=== PATIENT | female | born 1935 | race Caucasian/White ===

== ENCOUNTER → 2016-04-13 | Outpatient (CLI) | payer BC ==
[~2016-04-13] MED LIST: APR25 PO; ASPCH81X PO; ATV5X PO; CHOL20009 PO; COEN100C6 PO; DLCSR120 PO; LSN40 PO; OMEG10007 PO; RANI150T2 PO; SPIR25TA PO; SYN100 PO; TRAV0.00 OPB
== END | disposition home or self-care (01) ==
LOC: C.PAPS 09:33
PROVIDERS: ATTEND Obstetrics & Gynecology
DX: Z12.4 Encounter for screening for malignant neoplasm of cervix (principal)

== ENCOUNTER → 2016-10-11 | Outpatient (CLI) | payer BC ==
--- NOTE | 2016-10-11 15:52 | MAMMOGRAPHY REPORT ---
BILATERAL DIGITAL SCREENING MAMMOGRAM WITH CAD: 10/11/2016 CLINICAL HISTORY: Routine screening. Patient has no complaints. TECHNIQUE: Bilateral CC and MLO views were obtained. Current study was also evaluated with a Compute r Aided Detection (CAD) system. COMPARISON: Comparison is made to exams dated: 10/09/2015 mammogram, 10/07/2014 mammogram, 12/25/2013 m ammogram, 10/04/2013 mammogram, 09/29/2010 mammogram, and 10/03/2011 mammogram - [facility] enter. BREAST COMPOSITION: The tissue of both breasts is heterogeneously dense, which may obscure small mas ses. FINDINGS: There are diffuse bilateral dahlia-like and secretory calcifications throughout the breasts. No obvious mass, architectural distortion or cluster of new, suspicious microcalcifications is seen. IMPRESSION: ACR BI-RADS CATEGORY 1: NEGATIVE There is no mammographic evidence of malignancy. A 1 year screening mammogram is recommended. The pa tient will receive written notification of the results. Approximately 10% of breast cancers are not detected with mammography. A negative mammographic report should not delay biopsy if a clinically suggestive mass is present. Shoshana You M.D. ay/:10/11/2016 13:30:10 Napper Tender: Alesha LUNA(R)(Tashi), [facility] letter sent: Normal 1/2 BI-RADS Code: ACR BI-RADS Category 1: Negative
== END | disposition home or self-care (01) ==
LOC: C.MAMM 08:55
PROVIDERS: ATTEND Obstetrics & Gynecology
DX: Z12.31 Encounter for screening mammogram for malignant neoplasm of breast (principal)

== ENCOUNTER → 2017-10-11 | Outpatient (CLI) | payer BC ==
[~2017-10-11] MED LIST changes: +LISI40TA3 PO; -LSN40 PO
[2017-10-11 13:08] LABS: BASO % 0.6 %; BASO ABS # 0.06 K/uL (0-0.2); EOS % 2.8 %; EOS ABS # 0.27 K/uL (0-0.5); HEMATOCRIT 44.1 % (37-47); IG# 0.02 K/uL (0.00-0.02); LYMPH % 28.8 %; LYMPH ABS # 2.77 K/uL (1.2-3.4); MEAN CELL VOLUME 91.3 fL (80-100); MEAN CORPUSCULAR HEMOGLOBIN 31.1 pg (25-34); MEAN PLATELET VOLUME 10.6 fL (7.4-10.4); MONO % 11.7 %; MONO ABS # 1.13 K/uL (0.11-0.59); NEUT % 55.9 %; NEUT ABS # 5.37 K/uL (1.4-6.5); PLATELET COUNT 298 K/uL (130-400); RED CELL DISTRIBUTION WIDTH CV 13.9 % (11.5-14.5); RED CELL DISTRIBUTION WIDTH SD 46.2 fL (36.4-46.3); WHITE BLOOD COUNT 9.62 K/uL (4.8-10.8)
[2017-10-11 14:09] LABS: ALKALINE PHOSPHATASE 71 U/L (45-117); ALT/SGPT 23 U/L (12-78); AST/SGOT 21 U/L (15-37); BLOOD UREA NITROGEN 15 mg/dl (7-18); CALCIUM 9.3 mg/dl (8.5-10.1); CARBON DIOXIDE 26 mmol/L (21-32); CHOLESTEROL 154 mg/dl (0-200); CREATININE 1.01 mg/dl (0.60-1.20); GLUCOSE 94 mg/dl (70-99); LDL CHOLESTEROL CALCULATED 75 mg/dl; POTASSIUM 3.7 mmol/L (3.5-5.1); SODIUM 136 mmol/L (136-145); TOTAL PROTEIN 7.3 gm/dl (6.4-8.2)
== END | disposition home or self-care (01) ==
LOC: C.LABMFLN 06:53
PROVIDERS: ATTEND Family Medicine
DX: E03.9 Hypothyroidism, unspecified (principal); E78.00 Pure hypercholesterolemia, unspecified; M79.1 Myalgia; K21.0 Gastro-esophageal reflux disease with esophagitis

== ENCOUNTER 2022-03-25 11:54 | Observation (INO) ==
--- NOTE | 2022-03-25 12:45 | Emergency Department Note ---
Impression & Plan Stroke-like symptoms, Cerebral artery disease, Aneurysm of carotid artery, Bradycardia ED Provider Note NAME: JANET MANRIQUE AGE: 87 SEX: F : 1935 ARRIVES VIA: Walk-In INFORMANT: Patient, Family ED PROVIDER(S): Rudolph Rodriguez DO CHIEF COMPLAINT: Weakness HPI: The patient is an 87-year-old female who presented to the emergency [facility] via triage for an evaluation of weakness. The patient states that she awoke at approximately 3:00 this morning. She notes when she got up she was very off balance and felt as though she was falling backwards. She did states that she had a headache but which is now gone. She denies having any fever or cough. She denies having any vomiting. She called her family doctor to be seen and was referred to the emergency department. She presented with family. She states that she has been compliant with her outpatient medications. She denies having any current headache. She denies any unilateral weakness or difficulty speaking. I was called by the triage nurse to evaluate the patient in the waiting area to determine if she required stroke alert. ROS: See above HPI for pertinent positives & negatives. A total of 10 systems reviewed and were otherwise negative. PAST MEDICAL HISTORY: See Below PAST SURGICAL HISTORY: See Below FAMILY HISTORY: See Below SOCIAL HISTORY: See Below HOME MEDICATIONS: See Below ALLERGIES: See Below VITALS: See Below PHYSICAL EXAMINATION: GENERAL: Patient is awake alert in no acute distress patient is resting comfortably and showing no signs of anxiety EYES: The conjunctivae are clear. The pupils are round and reactive. EARS, NOSE, MOUTH AND THROAT: The nose is without any evidence of any deformity. Mucous membranes are moist. Tongue is midline. NECK: The neck is nontender and supple. RESPIRATORY: Normal respiratory effort is noted there is no evidence of wheezing rhonchi or rales CARDIOVASCULAR: Bradycardic heart sounds were noted to auscultation. There is no definite murmur. GASTROINTESTINAL: The abdomen is soft. Abdomen is nontender. MUSCULOSKELETAL/EXTREMITIES: There is no evidence of gross deformity full range of motion is noted in the hips and shoulders. SKIN: Skin is warm and dry. Trace pedal edema was noted bilaterally. NEUROLOGIC: Patient is awake alert and oriented x 3. 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 There is no drift in the upper extremities. There is no facial droop. Patient is able to hold each leg out for greater than 5 seconds. The patient did require some help with ambulation. MEDICAL DECISION MAKING: The patient is an 87-year-old female who presented to the emergency department for weakness. The patient states her symptoms began last evening. She did have a slight headache as well as what sounded like some ataxia. The patient did not have any facial droop. Strength appeared to be symmetric. When she tried to ambulate she did appear to have significant difficulty. She denies having any headache at this time. I discussed the patient's laboratory and radiographic studies with her. 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 I feel this more likely explains the patient's findings today. The patient did have elevation of blood pressure but given this is age-indeterminate I do not feel this would require intervention at this time. I did independently review the patient's radiographic studies. I will discuss his case with the on-call [facility]ist. The patient may require further inpatient work-up. Triage Nursing notes reviewed. Prior medical records reviewed Vital Signs: reviewed and remarkable for bradycardia. Differential diagnosis: Infection, dehydration, metabolic abnormality, hypo/hyperglycemia, electrolyte disturbance, anemia, hypoxia, cardiac sources, intracerebral event, toxicologic, neurologic, as well as other pathologies. ER treatment provided: See below Diagnostics interpreted by me: ECG: EKG was obtained in the emergency department. My interpretation is sinus bradycardia at 48 bpm. PVCs were noted. LVH was noted by voltage criteria. Nonspecific T wave abnormality noted in the lateral leads. This was compared to a tracing from November 28, 2014. The T wave abnormalities are new compared with this tracing. Cardiac Monitoring: An order was placed for continuous cardiac monitoring. The monitor shows a rate of 47 bpm with sinus bradycardia. Laboratory studies: As stated above and show below. Imaging studies: See below Radiographic imaging was reviewed by myself Consultation(s): Dr Garcia was notified about the patient. He will evaluate the patient in the emergency department for further management. I discussed this case with Dr. Velarde who is on-call for the [facility]ist group. Past Med/Surg History Medical History Abdominal pain, epigastric Abnormal mammography Atypical nevi Carpal tunnel syndrome Chronic reflux esophagitis Elevated blood sugar Elevated CK-MB level Encounter for routine gynecological examination Headache Hip pain Hypercholesterolemia Hypertension Hypertension, poor control Hypertensive emergency without congestive heart failure (12/11/13) Hypomagnesemia Hypothyroidism Impacted cerumen of right ear Influenza vaccine administered Lichen simplex chronicus Medicare annual wellness visit, subsequent Myalgia Nipple discharge PVCs (premature ventricular contractions) Recurrent UTI SNHL (sensorineural hearing loss) Subjective tinnitus Visit for screening mammogram Vulvovaginitis Surgical History History of appendectomy History of breast biopsy right History of cataract surgery bilateral History of colonoscopy History of dilation and curettage History of lumpectomy History of oophorectomy Family History Mother Stroke Coronary heart disease Congestive heart failure (CHF) Father Coronary heart disease Myocardial infarction Denies family history of Ovarian cancer Prostate cancer Breast cancer Colorectal cancer Social History Smoking Status: Never smoker Second Hand Exposure: Yes (Father smoked ); Hx Alcohol Use: Yes Alcohol type: beer and wine Alcohol Intake Frequency: 2-4 x/Month Hx Substance Use: No Preferred Language: Lithuanian Communication Ability: Effective Visual Impairment: Limited Hearing Ability: Hard of Hearing 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 Required: No Beliefs That Will Affect Care: None marital status: Current Living Situation: Spouse Current Living Situation Comment: [place] current occupational status: retired How many Children do You have: 1 Feels Safe at Home: Yes Childhood Exposure to Second-Hand Smoke: Yes (father smoked) Diet Comment: low sugar caffeine: No during the past year weight has: remained stable Dental Care, Regularly: Yes Physical Activity Frequency: 1-2 Times per Week Seatbelt Use: always Sunscreen Use: No Do you think of yourself as: straight/heterosexual Assistive Devices: Glasses Allergies Allergies Allergy/AdvReac Type Severity Reaction Status Date / Time ciprofloxacin Allergy Intermediate EDEMA Verified 03/25/22 16:57 diltiazem Allergy Intermediate EDEMA Verified 03/25/22 16:57 gabapentin Allergy Intermediate SWELLING Verified 03/25/22 16:57 Penicillins Allergy Intermediate HIVES Verified 03/25/22 16:57 tramadol Allergy Mild Unknown Verified 03/25/22 16:57 amlodipine Allergy Unknown Unknown Verified 03/25/22 16:57 Sulfa (Sulfonamide Allergy Unknown Unknown Verified 03/25/22 16:57 Antibiotics) Home Meds Home Medications Medication Instructions Recorded Confirmed ascorbate calcium (vitamin C) 500 500 mg PO DAILY 12/28/21 03/25/22 mg tablet omega-3 fatty acids 1,000 mg 1,000 mg PO DAILY 03/25/22 03/25/22 capsule Previous Rx's Medication Instructions Recorded cholecalciferol (vitamin D3) 50 2,000 units PO DAILY #30 caps 08/21/18 mcg (2,000 unit) capsule pravastatin 20 mg tablet 20 mg PO DAILY #90 tabs 09/02/21 cane #1 ea 10/29/21 sertraline 25 mg tablet (Zoloft) 25 mg PO DAILY #30 tabs 11/01/21 diltiazem HCl 240 mg 240 mg PO DAILY #90 caps 01/12/22 capsule,extended release 24 hr aspirin 81 mg tablet,delayed 81 mg PO DAILY #30 tabs 02/07/22 release (Adult Low Dose Aspirin) carvedilol 12.5 mg tablet 12.5 mg PO BID #180 tabs 02/07/22 hydrochlorothiazide 25 mg tablet 25 mg PO DAILY #90 tabs 02/07/22 levothyroxine 88 mcg tablet 88 mcg PO DAILY #90 tabs 02/07/22 (Levoxyl) lisinopril 40 mg tablet 40 mg PO DAILY #90 tabs 02/07/22 magnesium oxide 500 mg PO DAILY #180 tabs 02/07/22 Results & Data (ED) Vital Signs Vital Signs - 24 hr 03/25/22 12:19 03/25/22 15:56 03/25/22 15:56 Temperature 36.5 C Temperature Source Temporal Artery Scan Pulse Rate 46 L Pulse Rate [Right Finger] 53 L Pulse Rhythm Regular Pulse Rhythm [Right Finger] Regular Pulse Strength Normal Pulse Strength [Right Finger] Normal Respiratory Rate 20 18 Respiratory Effort / Characteristics Non-Labored Spontaneous Non-Labored Respiratory Depth Normal Normal Respiratory Pattern Regular Regular Blood Pressure 126/63 Blood Pressure [Right Arm] 140/67 Blood Pressure Mean 84 Blood Pressure Mean [Right Arm] 91 Blood Pressure Position Sitting Blood Pressure Position [Right Arm] Lying Pulse Oximetry 93 94 Oxygen Delivery Method Room Air Room Air Room Air Sepsis Recent Fever Within 48 Hours No Sepsis New/Unexplained Change in Mental Status N/A Sepsis Action Taken by Nursing No Action Required 03/25/22 15:56 03/25/22 17:00 Temperature Temperature Source Pulse Rate Pulse Rate [Right Finger] 46 L Pulse Rhythm Pulse Rhythm [Right Finger] Regular Pulse Strength Pulse Strength [Right Finger] Normal Respiratory Rate 18 Respiratory Effort / Characteristics Non-Labored Respiratory Depth Normal Respiratory Pattern Regular Blood Pressure Blood Pressure [Right Arm] 143/66 H Blood Pressure Mean Blood Pressure Mean [Right Arm] 91 Blood Pressure Position Blood Pressure Position [Right Arm] Lying Pulse Oximetry 91 Oxygen Delivery Method Room Air Room Air Sepsis Recent Fever Within 48 Hours Sepsis New/Unexplained Change in Mental Status Sepsis Action Taken by Half-Way Medications Current Medication List: was personally reviewed by me Laboratory Data Attestation: I reviewed the patient's lab results. 03/25/22 12:43 03/25/22 12:43 Lab Results 03/25/22 03/25/22 03/25/22 Range/Units 12:43 12:43 12:43 WBC 10.88 H (4.8-10.8) K/ul RBC 5.04 (3.93-5.22) M/uL Hgb 15.6 (12.0-16.0) g/dl POC Hgb (12.0-16.0) g/dl Hct 45.5 H (34.1-44.9) % POC Hct (37-47) % MCV 90.3 (80.0-100.0) fL MCH 31.0 (25.0-34.0) pg MCHC 34.3 (32.0-36.0) g/dL RDW Std Deviation 43.2 (36.4-46.3) fL RDW Coeff of Agatha 13.2 (11.5-14.5) % Plt Count 287 (130-400) K/uL MPV 10.0 (9.4-12.3) fL PT 11.4 (9.0-12.0) Seconds INR 1.1 (0.9-1.1) APTT 25.6 (21.0-31.0) Seconds PTT Ratio 0.9 POC Sodium (135-144) mmol/L Sodium 135 L (136-145) mmol/L POC Potassium (3.3-5.0) mmol/L Potassium TNP POC Chloride (101-112) mmol/L Chloride 100 (98-107) mmol/L Carbon Dioxide 28 (21-32) mmol/L POC Total CO2 (24-31) mmol/L Anion Gap 7 (3-11) POC Anion Gap (16-25) mmol/L POC BUN (7-18) mg/dl BUN 23 (6-23) mg/dl Creatinine 1.22 H (0.6-1.2) mg/dl POC Creatinine (0.6-1.3) mg/dl Est Cr Clr Drug Dosing Not Reportable Est GFR ( Amer) 46.5 ml/min Est GFR (Non-Af Amer) 40.1 ml/min BUN/Creatinine Ratio 18.9 (10-20) Glucose 156 H (70-99(Fasting)) mg/dl POC Glucose (other) (70-99) mg/dl Calcium 9.6 (8.5-10.1) mg/dl POC Ioniz Calcium Oliver (1.12-1.32) mmol/l Magnesium 1.8 (1.7-2.4) mg/dl Total Bilirubin 0.8 (0.2-1.0) mg/dl AST TNP ALT 20 (7-52) U/L Alkaline Phosphatase 69 (34-104) U/L Troponin I High Sens (0-14) pg/ml Total Protein 7.6 (6.0-8.3) gm/dl Albumin 4.1 (3.4-5.0) gm/dl Globulin 3.5 (2.5-4.0) gm/dl Albumin/Globulin Ratio 1.2 (0.9-2) SARS-CoV-2, RNA, NAAT (NEGATIVE) 03/25/22 03/25/22 03/25/22 Range/Units 12:50 12:57 16:03 WBC (4.8-10.8) K/ul RBC (3.93-5.22) M/uL Hgb (12.0-16.0) g/dl POC Hgb 16.3 H (12.0-16.0) g/dl Hct (34.1-44.9) % POC Hct 48 H (37-47) % MCV (80.0-100.0) fL MCH (25.0-34.0) pg MCHC (32.0-36.0) g/dL RDW Std Deviation (36.4-46.3) fL RDW Coeff of Agatha (11.5-14.5) % Plt Count (130-400) K/uL MPV (9.4-12.3) fL PT (9.0-12.0) Seconds INR (0.9-1.1) APTT (21.0-31.0) Seconds PTT Ratio POC Sodium 139 (135-144) mmol/L Sodium (136-145) mmol/L POC Potassium 3.7 (3.3-5.0) mmol/L Potassium 4.2 POC Chloride 100 L (101-112) mmol/L Chloride (98-107) mmol/L Carbon Dioxide (21-32) mmol/L POC Total CO2 26 (24-31) mmol/L Anion Gap (3-11) POC Anion Gap 17.0 (16-25) mmol/L POC BUN 23 H (7-18) mg/dl BUN (6-23) mg/dl Creatinine (0.6-1.2) mg/dl POC Creatinine 1.3 (0.6-1.3) mg/dl Est Cr Clr Drug Dosing Est GFR ( Amer) ml/min Est GFR (Non-Af Amer) ml/min BUN/Creatinine Ratio (10-20) Glucose (70-99(Fasting)) mg/dl POC Glucose (other) 156 H (70-99) mg/dl Calcium (8.5-10.1) mg/dl POC Ioniz Calcium Oliver 1.24 (1.12-1.32) mmol/l Magnesium (1.7-2.4) mg/dl Total Bilirubin (0.2-1.0) mg/dl AST 24 ALT (7-52) U/L Alkaline Phosphatase (34-104) U/L Troponin I High Sens 8.7 (0-14) pg/ml Total Protein (6.0-8.3) gm/dl Albumin (3.4-5.0) gm/dl Globulin (2.5-4.0) gm/dl Albumin/Globulin Ratio (0.9-2) SARS-CoV-2, RNA, NAAT NEGATIVE (NEGATIVE) Administered Medications Discontinued Medications Ioversol (Optiray 320 500ml) 120 ml IV ONCE ONE Stop: 03/25/22 14:09 Last Admin: 03/25/22 14:09 Dose: 120 ml Documented By: LORENZO Ondansetron HCl (Ondansetron Inj 2 Mg/Ml 2 Ml Vial) 4 mg IV NOW STA Stop: 03/25/22 16:08 Last Admin: 03/25/22 16:29 Dose: 4 mg Documented By: AP Imaging Data Radiologist's Impression: Head CT 03/25/22 12:29 CT OF THE HEAD WITHOUT CONTRAST CLINICAL HISTORY: Stroke Alert. COMPARISON STUDY: MRI of the brain September 17, [address] October 27, 2021. TECHNIQUE: Helical axial images of the head were obtained without IV contrast. Automated exposure control was utilized for the study. A dose lowering technique was utilized adhering to the principles of ALARA. FINDINGS: This study is mildly compromised by motion artifact. White matter hypodensity suggests small vessel disease. No acute intracranial hemorrhage, midline shift or mass effect is present. The ventricular system is unremarkable. The basal cisterns are patent. No extra-axial collections are present. There are no findings to suggest acute dural sinus thrombosis or acute territorial infarct. No significant calvarial abnormalities are present. Visualized portions of the sinuses and mastoid air cells are clear. IMPRESSION: No acute intracranial findings. Exam mildly compromised by artifact. ACT 112: Negative or not required by law. Electronically signed by: Jurgen Ray M.D. 03/25/2022 2:40 PM Head CTA 03/25/22 12:37 CT angio head w con CLINICAL HISTORY: 87 years-old Female with cva. Acute headache with strokelike symptoms COMPARISON STUDY: Head CT of same day TECHNIQUE: Following the IV administration of 120 cc of Optiray, CT angiogram of the brain was performed from the skull base to the vertex. Images are reviewed in the axial, sagittal, and coronal planes. 3-D MIPS images are created and assessed. IV contrast was administered without complication. All measurements were obtained according to NASCET criteria. A dose lowering technique was utilized adhering to the principles of ALARA. FINDINGS: CT ANGIOGRAM OF THE BRAIN: The imaged bilateral internal carotid arteries are patent. 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 This aneurysm is adjacent to a 7 x 5 x 4 mm aneurysm arising from the clinoid segment on image 103. No evidence of aneurysm rupture. The bilateral internal carotid arteries are patent. The bilateral anterior and middle cerebral arteries are also patent. There is a short segment high-grade stenosis present within the P2 segment of the left posterior cerebral artery on image 96 series 7. The basilar and posterior cerebral arteries are patent. The cerebral venous sinuses appear patent. There is no abnormal intracranial enhancement identified. Age-related involutional changes with chronic microvascular ischemic disease. IMPRESSION: 1. 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 No evidence of aneurysm rupture. 2. Focal short segment area of high-grade stenosis within the left posterior cerebral artery. ACT 112: Negative or not required by law. The above report was generated using voice recognition software. It may contain grammatical, syntax or spelling errors. Electronically signed by: Magdiel Birmingham M.D. 03/25/2022 2:45 PM Neck CTA 03/25/22 12:37 NECK CTA HISTORY: Headaches. Ataxia. Confusion. Possible stroke. TECHNIQUE: Multiaxial CT images of the neck were performed following the intravenous administration of contrast to evaluate the major cervical vessels. Maximum intensity projection images were also obtained. All measurements were calculated based on NASCET criteria. A dose lowering technique was utilized adhering to the principles of ALARA. COMPARISON STUDY: None. FINDINGS: The aortic arch and proximal great vessels are widely patent. There is no significant stenosis, occlusion, or dissection identified within the bilateral common carotid, internal carotid, or vertebral arteries. Mild to moderate calcified plaque within the bilateral carotid bifurcations. IMPRESSION: No significant stenosis, occlusion, or dissection identified within the carotid or vertebral arteries. ACT 112: Negative or not required by law. Electronically signed by: Mayur Villatoro M.D. 03/25/2022 2:30 PM Chest X-Ray 03/25/22 16:05 SINGLE VIEW CHEST CLINICAL HISTORY: Generalized weakness FINDINGS: 2 AP, portable, upright chest radiographs are compared to study dated 02/06/2019. The heart is enlarged. Atherosclerotic calcification of the thoracic aorta. The pulmonary vasculature is noncongested. Chronic interstitial thickening similar to previous. The lungs and pleural spaces are otherwise clear noting bibasilar scarring/atelectasis. No pneumothorax is seen. The skeletal structures are osteopenic. The bony thorax is grossly intact. IMPRESSION: Cardiomegaly with no active disease in the chest. ACT 112: Negative or not required by law. Electronically signed by: Manjit Bourgeois M.D. 03/25/2022 4:44 PM Discharge Plan Visit Data Chief Complaint: Dizziness Stated Complaint: DIZZINESS,NAUSEA, ED Provider: Rudolph Rodriguez Discharge Problem: Stroke-like symptoms, Cerebral artery disease, Aneurysm of carotid artery, Bradycardia Patient Disposition: Being Evaluated by Hospitalist Forms Stand Alone Forms: My [facility] Prescriptions Prescriptions: No Action sertraline [Zoloft] 25 mg tablet 25 mg PO DAILY Qty: 30 2RF diltiazem HCl 240 mg capsule,extended release 24hr 240 mg PO DAILY Qty: 90 3RF ascorbate calcium (vitamin C) 500 mg tablet 500 mg PO DAILY levothyroxine [Levoxyl] 88 mcg tablet 88 mcg PO DAILY Qty: 90 3RF carvedilol 12.5 mg tablet 12.5 mg PO BID Qty: 180 3RF Rx Instructions: must administer with a meal/food lisinopril 40 mg tablet 40 mg PO DAILY Qty: 90 3RF magnesium oxide 250 mg magnesium tablet 500 mg PO DAILY Qty: 180 0RF hydrochlorothiazide 25 mg tablet 25 mg PO DAILY Qty: 90 3RF aspirin [Adult Low Dose Aspirin] 81 mg tablet,delayed release (DR/EC) 81 mg PO DAILY Qty: 30 2RF (DME) cane Device See Rx Instructions .Route Qty: 1 0RF Rx Instructions: As directed cholecalciferol (vitamin D3) 2,000 unit capsule 2,000 units PO DAILY Qty: 30 0RF pravastatin 20 mg tablet 20 mg PO DAILY Qty: 90 3RF omega-3 fatty acids 1,000 mg Capsule 1,000 mg PO DAILY Referrals Referrals: Sourav Mac DO [Primary Care Provider] -
[2022-03-25 13:05] LABS: Hematocrit (blood only) 45.5 % (34.1-44.9); Hemoglobin 15.6 g/dl (12.0-16.0); Mean Corpuscular Hgb Conc 34.3 g/dL (32.0-36.0); Mean Corpuscular Volume 90.3 fL (80.0-100.0); Platelet Count 287 K/uL (130-400); RDW Coefficient of Variation 13.2 % (11.5-14.5); RDW Standard Deviation 43.2 fL (36.4-46.3); Red Blood Count 5.04 M/uL (3.93-5.22); White Blood Count 10.88 K/ul (4.8-10.8)
[2022-03-25 13:11] LABS: iSTAT Creatinine 1.3 mg/dl (0.6-1.3); iSTAT Hemoglobin 16.3 g/dl (12.0-16.0); iSTAT Ionized Calcium 1.24 mmol/l (1.12-1.32); iSTAT Potassium 3.7 mmol/L (3.3-5.0)
[2022-03-25 13:26] LABS: INR 1.1 (0.9-1.1); Partial Thromboplastin Ratio 0.9; Partial Thromboplastin Time 25.6 Seconds (21.0-31.0); Prothrombin Time 11.4 Seconds (9.0-12.0)
[2022-03-25 13:33] LABS: Alanine Aminotransferase 20 U/L (7-52); Albumin Globulin Ratio 1.2 (0.9-2); Albumin Level 4.1 gm/dl (3.4-5.0); Alkaline Phosphatase 69 U/L (34-104); Anion Gap 7 (3-11); BUN Creatinine Ratio 18.9 (10-20); Bilirubin,Total 0.8 mg/dl (0.2-1.0); Blood Urea Nitrogen 23 mg/dl (6-23); Calcium 9.6 mg/dl (8.5-10.1); Carbon Dioxide 28 mmol/L (21-32); Chloride 100 mmol/L (98-107); Est GFR (African American) 46.5 ml/min; Est GFR (Non-African American) 40.1 ml/min; Globulin 3.5 gm/dl (2.5-4.0); Glucose 156 mg/dl (70-99(Fasting)); Magnesium 1.8 mg/dl (1.7-2.4); Sodium 135 mmol/L (136-145); Total Protein 7.6 gm/dl (6.0-8.3)
[2022-03-25] MEDS ORDERED: OPTIRAY 320 500ml IV ONE (14:08)
--- NOTE | 2022-03-25 14:31 | CT Scan Report ---
NECK CTA HISTORY: Headaches. Ataxia. Confusion. Possible stroke. TECHNIQUE: Multiaxial CT images of the neck were performed following the intravenous administration o f contrast to evaluate the major cervical vessels. Maximum intensity projection images were also obta ined. All measurements were calculated based on NASCET criteria. A dose lowering technique was utili zed adhering to the principles of ALARA. COMPARISON STUDY: None. FINDINGS: The aortic arch and proximal great vessels are widely patent. There is no significant sten osis, occlusion, or dissection identified within the bilateral common carotid, internal carotid, or v ertebral arteries. Mild to moderate calcified plaque within the bilateral carotid bifurcations. IMPRESSION: No significant stenosis, occlusion, or dissection identified within the carotid or vertebral arteries . ACT 112: Negative or not required by law. Electronically signed by: Mayur Villatoro M.D. 03/25/2022 2:30 PM
--- NOTE | 2022-03-25 14:41 | CT Scan Report ---
CT OF THE HEAD WITHOUT CONTRAST CLINICAL HISTORY: Stroke Alert. COMPARISON STUDY: MRI of the brain September 17, [address] October 27, 2021. TECHNIQUE: Helical axial images of the head were obtained without IV contrast. Automated exposure con trol was utilized for the study. A dose lowering technique was utilized adhering to the principles o f ALARA. FINDINGS: This study is mildly compromised by motion artifact. White matter hypodensity suggests smal l vessel disease. No acute intracranial hemorrhage, midline shift or mass effect is present. The vent ricular system is unremarkable. The basal cisterns are patent. No extra-axial collections are present . There are no findings to suggest acute dural sinus thrombosis or acute territorial infarct. No sign ificant calvarial abnormalities are present. Visualized portions of the sinuses and mastoid air cells are clear. IMPRESSION: No acute intracranial findings. Exam mildly compromised by artifact. ACT 112: Negative or not required by law. Electronically signed by: Jurgen Ray M.D. 03/25/2022 2:40 PM
--- NOTE | 2022-03-25 14:47 | CT Scan Report ---
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 Acute headache with strokelike symptoms COMPARISON STUDY: Head CT of same day TECHNIQUE: Following the IV administration of 120 cc of Optiray, CT angiogram of the brain was perfor med from the skull base to the vertex. Images are reviewed in the axial, sagittal, and coronal planes . 3-D MIPS images are created and assessed. IV contrast was administered without complication. All me asurements were obtained according to NASCET criteria. A dose lowering technique was utilized adherin g to the principles of ALARA. FINDINGS: CT ANGIOGRAM OF THE BRAIN: The imaged bilateral internal carotid arteries are patent. 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 This aneurysm is adjacent to a 7 x 5 x 4 mm aneurysm arising from the clinoid segment on image 103. No evidence of aneurysm rupture. Th e bilateral internal carotid arteries are patent. The bilateral anterior and middle cerebral arteries are also patent. There is a short segment high-grade stenosis present within the P2 segment of the l eft posterior cerebral artery on image 96 series 7. The basilar and posterior cerebral arteries are p atent. The cerebral venous sinuses appear patent. There is no abnormal intracranial enhancement ident ified. Age-related involutional changes with chronic microvascular ischemic disease. IMPRESSION: 1. There are two areas of saccular aneurysmal dilation involving the distal right internal carotid ar louise measuring up to 9 mm. No evidence of aneurysm rupture. 2. Focal short segment area of high-grade stenosis within the left posterior cerebral artery. ACT 112: Negative or not required by law. The above report was generated using voice recognition software. It may contain grammatical, syntax o r spelling errors. Electronically signed by: Magdiel Birmingham M.D. 03/25/2022 2:45 PM
[2022-03-25] MEDS ORDERED: ONDANSETRON INJ 2 MG/ML 2 ML VIAL IV STA (16:07)
--- NOTE | 2022-03-25 16:11 | Electrocardiogram Report ---
Test Reason : Blood Pressure : / mmHG Vent. Rate : 048 BPM Atrial Rate : 048 BPM P-R Int : 170 ms QRS Dur : 082 ms QT Int : 504 ms P-R-T Axes : -22 -12 091 degrees QTc Int : 450 ms Poor data quality, interpretation may be adversely affected Sinus bradycardia with occasional Premature ventricular complexes Left ventricular hypertrophy with repolarization abnormality Abnormal ECG When compared with ECG of 28-NOV-2014 22:41, Vent. rate has decreased BY 45 BPM T wave inversion now evident in Lateral leads Confirmed by Rudolph Bowman ([id number]) on 03/25/2022 4:11:04 PM Referred By: Confirmed By:Rudolph Bowman
[2022-03-25 16:40] LABS: Potassium 4.2 mmol/L (3.5-5.1)
--- NOTE | 2022-03-25 16:45 | XRay Report ---
SINGLE VIEW CHEST CLINICAL HISTORY: Generalized weakness FINDINGS: 2 AP, portable, upright chest radiographs are compared to study dated 02/06/2019. The heart is enlarged. Atherosclerotic calcification of the thoracic aorta. The pulmonary vasculature is nonco ngested. Chronic interstitial thickening similar to previous. The lungs and pleural spaces are otherw ise clear noting bibasilar scarring/atelectasis. No pneumothorax is seen. The skeletal structures are osteopenic. The bony thorax is grossly intact. IMPRESSION: Cardiomegaly with no active disease in the chest. ACT 112: Negative or not required by law. Electronically signed by: Manjit Bourgeois M.D. 03/25/2022 4:44 PM
[2022-03-25 17:11] LABS: Troponin I High Sensitivity 8.7 pg/ml (0-14)
--- NOTE | 2022-03-25 18:28 | History & Physical Report ---
Date of Service March 25, 2022 Assessment & Plan (1) Dizziness: Plan: Seems to be both a dizziness and a lightheadednesswith what I can see so farposterior circulation stenosis and symptomatic bradycardia are likely both playing off of each other -Posterior circulation stenosis: Follow blood pressure, check lipids, check A1c, MRI brain -Bradycardia: Serial EKGs/cardiac monitoring, hold Coreg and diltiazem and followappears to be sinus bradycardia for now -Given hypothyroidism and forgetting Synthroid (dose unknown) this may play a role as well (2) Bradycardia: Plan: See above (3) Memory loss: Plan: Sounds to be a 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 PT/OT eval and treatdisposition will be a bit of a "work in progress" depending on her symptoms and functional status History of Present Illness Chief Complaint: Unsteadiness Primary Care Provider: Sourav Mac DO Patient is a very pleasant 87-year-old female accompanied by her family. History is a little bit limited by degree of forgetfulness and difficulty hearin g, but putting it together between discussion with the ER doc, the patient, and her familyshe apparently was fairly dizzy when she tried to get up earlier todayfeeling like she was going to fall backwards. On directed questioning she notes there was both an unsteadiness and a lightheadedness (like a head escobar) and the seem to be concomitant but separate sensations. She has no focal numbness or weakness. No other acute symptoms. She does note a degree of forgetfulnesson discussion with her and son, it sounds like the forgetfulness has been slowly progressive over the last 6-12 months. Review of systems otherwise negative except for as above. Son notes that over the last months he has noticed his mom have a bit of a declinehis dad had a knee replacement about a month ago, and with his dad not being able to do as much care of his mom as before, as well as the fact that their routines have been offhe noticed a significant change in mom. Notes she is frequently forgetting medications as well. Allergies Allergy/AdvReac Type Severity Reaction Status Date / Time ciprofloxacin Allergy Intermediate EDEMA Verified 03/25/22 16:57 diltiazem Allergy Intermediate EDEMA Verified 03/25/22 16:57 gabapentin Allergy Intermediate SWELLING Verified 03/25/22 16:57 Penicillins Allergy Intermediate HIVES Verified 03/25/22 16:57 tramadol Allergy Mild Unknown Verified 03/25/22 16:57 amlodipine Allergy Unknown Unknown Verified 03/25/22 16:57 Sulfa (Sulfonamide Allergy Unknown Unknown Verified 03/25/22 16:57 Antibiotics) Home Medications Medication Instructions Recorded Confirmed Type cholecalciferol (vitamin D3) 50 2,000 units PO DAILY #30 caps 08/21/18 03/25/22 Rx mcg (2,000 unit) capsule pravastatin 20 mg tablet 20 mg PO DAILY #90 tabs 09/02/21 03/25/22 Rx cane #1 ea 10/29/21 12/15/21 Rx sertraline 25 mg tablet (Zoloft) 25 mg PO DAILY #30 tabs 11/01/21 03/25/22 Rx ascorbate calcium (vitamin C) 500 500 mg PO DAILY 12/28/21 03/25/22 History mg tablet diltiazem HCl 240 mg 240 mg PO DAILY #90 caps 01/12/22 03/25/22 Rx capsule,extended release 24 hr aspirin 81 mg tablet,delayed 81 mg PO DAILY #30 tabs 02/07/22 03/25/22 Rx release (Adult Low Dose Aspirin) carvedilol 12.5 mg tablet 12.5 mg PO BID #180 tabs 02/07/22 03/25/22 Rx hydrochlorothiazide 25 mg tablet 25 mg PO DAILY #90 tabs 02/07/22 03/25/22 Rx levothyroxine 88 mcg tablet 88 mcg PO DAILY #90 tabs 02/07/22 03/25/22 Rx (Levoxyl) lisinopril 40 mg tablet 40 mg PO DAILY #90 tabs 02/07/22 03/25/22 Rx magnesium oxide 500 mg PO DAILY #180 tabs 02/07/22 03/25/22 Rx omega-3 fatty acids 1,000 mg 1,000 mg PO DAILY 03/25/22 03/25/22 History capsule Past Med/Surg History Medical History Abdominal pain, epigastric Abnormal mammography Atypical nevi Carpal tunnel syndrome Chronic reflux esophagitis Elevated blood sugar Elevated CK-MB level Encounter for routine gynecological examination Headache Hip pain Hypercholesterolemia Hypertension Hypertension, poor control Hypertensive emergency without congestive heart failure (12/11/13) Hypomagnesemia Hypothyroidism Impacted cerumen of right ear Influenza vaccine administered Lichen simplex chronicus Medicare annual wellness visit, subsequent Myalgia Nipple discharge PVCs (premature ventricular contractions) Recurrent UTI SNHL (sensorineural hearing loss) Subjective tinnitus Visit for screening mammogram Vulvovaginitis Surgical History History of appendectomy History of breast biopsy right History of cataract surgery bilateral History of colonoscopy History of dilation and curettage History of lumpectomy History of oophorectomy Family History Mother Stroke Coronary heart disease Congestive heart failure (CHF) Father Coronary heart disease Myocardial infarction Denies family history of Ovarian cancer Prostate cancer Breast cancer Colorectal cancer Social History Smoking Status: Never smoker Second Hand Exposure: Yes (Father smoked ); Hx Alcohol Use: Yes Alcohol type: beer and wine Alcohol Intake Frequency: 2-4 x/Month Hx Substance Use: No Preferred Language: Nauruan Communication Ability: Effective Visual Impairment: Limited Hearing Ability: Hard of Hearing Wrapper Stripper Required: No Beliefs That Will Affect Care: None marital status: Current Living Situation: Spouse Current Living Situation Comment: Terence Chnadra current occupational status: retired How many Children do You have: 1 Feels Safe at Home: Yes Childhood Exposure to Second-Hand Smoke: Yes (father smoked) Diet Comment: low sugar caffeine: No during the past year weight has: remained stable Dental Care, Regularly: Yes Physical Activity Frequency: 1-2 Times per Week Seatbelt Use: always Sunscreen Use: No Do you think of yourself as: straight/heterosexual Assistive Devices: Glasses Review of Systems Review of Systems: All systems reviewed & are unremarkable except as noted in HPI & below Physical Exam Physical Exam: In general she is awake alert oriented but somewhat forgetful no distress. HEENT normocephalic atraumatic mucous membranes moist. Cardio is fairly bradycardic and distant, no rubs murmurs or gallops are noted. Lungs are clear to auscultation bilaterally no rales rhonchi or wheezessomewhat difficult exam due to weakness and positioning. Abdomen is soft nondistended nontender no masses organomegaly. Extremities no cyanosis clubbing, about 2+ bilateral edema. Neuro shows cranial nerves II through XII be grossly intact gross motor is 5 out of 5 globally (of note she was weak on her left leg on first attempt, but second attempt was 5 out of 5 and equal to her right on all subsequent attempts.) Sensory is intact and equal bilaterally to confrontational light touch. Musculoskeletal shows no gross lesions. Mental status shows her to have fair to poor recent recall, normal mood and affect. Results & Data Results & Data ([facility]) Vital Signs (Past 12 Hours) Vital Signs Temp Pulse Pulse Resp BP BP Pulse Ox 03/25/22 17:00 46 L 18 143/66 H 91 03/25/22 15:56 03/25/22 15:56 53 L 18 140/67 94 03/25/22 15:56 03/25/22 12:19 97.7 F 46 L 20 126/63 93 O2 Del Method 03/25/22 17:00 Room Air 03/25/22 15:56 Room Air 03/25/22 15:56 Room Air 03/25/22 15:56 Room Air 03/25/22 12:19 Room Air Code Status & VTE Plan VTE Prophylaxis Plan VTE Prophylaxis will be ordered: Yes PG Care Time/CCT Total # of Minutes Spent Total Time Spent with Patient: Total time spent is greater than 50% in coordination of care (as documented) at patient's floor/unit and/or counseling patient: Coding Level of Care Code 44156 INT INP/OBS CARE 3/75MIN Diagnoses Dizziness R42 Bradycardia R00.1 Memory loss R41.3 Hypercholesterolemia E78.00 Hypertension I10 DVT prophylaxis Z29.9 Discharge planning issues Z02.9
[2022-03-25] MEDS ORDERED: POLYETHYLENE (MIRALAX) 17 GM PACK PO PRN (21:52)
[2022-03-25] MEDS ORDERED: MAGNESIUM HYDROXIDE SUSP 30 ML UDC PO PRN (21:52)
[2022-03-25] MEDS ORDERED: ONDANSETRON INJ 2 MG/ML 2 ML VIAL IV PRN (21:52)
[2022-03-25] MEDS ORDERED: PHARMACIST DISCHARGE MED REC CONSULT PRN (21:52)
[2022-03-25] MEDS ORDERED: ACETAMINOPHEN 325 MG TAB PO PRN (21:52)
[2022-03-25] MEDS ORDERED: ALUMINUM/MAGNESIUM SUSP 30 ML UDC PO PRN (21:52)
[2022-03-26] MEDS ORDERED: PNEUMOCOCCAL POLYSACCHARIDES 25 MCG/0.5 ML VIAL/SYR IM ONE (00:15)
[2022-03-26] MEDS ORDERED: INFLUENZA VACCINE HIGH DOSE PF 65+ 0.7 ML SYR IM ONE (00:15)
[2022-03-26 05:00] LABS: Appearance Urine Clear (Clear); Bacteria Urine Automated Negative (Negative); Bilirubin Urine Negative (Negative); Blood Urine Negative (Negative); Color Urine Yellow; Glucose Urine UA Negative (Negative); Ketones Urine Negative (Negative); Leukocyte Esterase Urine Trace (Negative); Nitrite Urine Negative (Negative); Protein Urine Negative (Negative); RBC Urine Automated 0-4 /hpf (0-4); Specific Gravity Urine 1.026 (1.000-1.030); Urobilinogen Urine Negative (Negative); pH Urine 5.5 (4.5-7.5)
[2022-03-26] MEDS: LEVOTHYROXINE SODIUM 88 MCG TABLET PO SCH (05:36)
--- NOTE | 2022-03-26 07:31 | Hospitalist Progress Note ---
Date of Service March 26, 2022 Assessment & Plan (1) Dizziness: (2) Bradycardia: (3) Memory loss: (4) Hypercholesterolemia: (5) Hypertension: (6) DVT prophylaxis: (7) Discharge planning issues: Plan Nini is a n 87 yo F w/ hx of situational depression, edema, PVCs, reflux esophagitis, hypercholesterolemia, hypothyroidism, SNHL, tinnitus, recurrent UTI, and HTN who presents for evaluation and management of dizziness. 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 Dizziness - Likely multifactorial in nature - Considered 2/2 bradycardia vs stenosis of posterior circulation vs. B12 deficiency vs Hypothyroid vs Progressive Dementia - Labs ordered to evaluate for underlying causes - MRI ordered; no acute changes - Coreg and Diltiazem held d/t bradycardia on presentation --- Continue telemetry, following for tachy/ghassan Bradycardia - Symptomatic bradycardia evidenced on admission - Patient has remained sinus rhythm with rates of 60-70 overnight and today - Coreg and Diltiazem held d/t bradycardia --- Possible med effect, continue hold on Coreg and Dilt --- 03/26 NSR on repeat EKG Stenosis of Posterior Circulation - 03/25 Head CTA showing: Focal short segment area of high-grade stenosis within the left posterior cerebral artery. - 03/26 Brain MRI showing: No acute intracranial abnormality. No acute or subacute infarct. Involutional changes with chronic microvascular ischemic disease. - 03/26 Lipid Panel overall unremarkable (total cholesterol mildly elevated), A1c 6.7 (indicating diabetes, no current management) --- Continue to follow BP, elevation may be required for perfusion d/t stenosis, will pend PT/OT eval Memory Loss - Chronic, progressive - MRI details above --- Patient's family describes moderate dementia (03/26), clinical picture suggestive of progression to severe dementia given chronic microvascular changes on MRI --- Risk of delirium discussed with family Diabetes - A1c 6.7, no current medical management Hypothyroidism - Home dose unknown to patient - Notes forgotten doses - Possible contributing factor - 03/26 TSH 2.1 --- Continue home Levothyroxine 88 mcg B12 Deficiency - 03/26 B12 381 (pt. level < 400) --- Continue to Supplement 1000 mcg daily Hypercholesterolemia - 03/26 Lipid Panel overall unremarkable (mildly elevated total cholesterol) --- Continue home Pravastatin 20 mg HTN - Follow BP - Prefer to have BP lower in setting of vascular disease - Pt. will likely require permissive HTN for perfusion - Coreg and Diltiazem held d/t bradycardia --- Patient receives Lisinopril 40 mg, HCTZ 25 mg, Diltiazem 240 mg, and Carvedilol 12.5 mg daily at home --- Continue to hold Coreg and Dilt Depression - Continue home Sertraline 25 mg PO FEN: Regular Code status: DNR/DNI DVT ppx: Lovenox Isolation: None Dispo:Med/Tele, PT/OT eval Admission and Anticipated Discharge Date Admission Date: March 25, 2022 Supervising Physician Co-Signing Physician Notes I personally examined the patient and verified all mcneill points of history and exam, discussed case, and agree with decision making with Dr Xiao No meaningful HPI review of systems obtainable from patient. Family updated extensively. Answered all questions the best my ability and to their satisfaction. Vitals noted, in general she is sleeping comfortably no distress. Breathing unlabored. No focal or lateralizing neurodeficits at rest. Dizzinessseems to be 2 different problems, dizzy and lightheaded --- Lightheaded appears to probably be symptomatic bradycardiafrom beta-jessika and calcium channel blockerdiscussed with family that the 2 major possibilities for why chronic stable medications may suddenly be causing a degree of bradycardia would be slower metabolism as she ages essentially "effectively raising the dose", or an early sign of progression towards sick sinus syndrome. Currently holding both metoprolol and diltiazem and following heart rate/rhythmhas been sinus and sinus bradycardia. If she does not show any sort of sick sinus/inappropriate bradycardia off of the medications, would like to obtain an event monitor as an outpatient --- Dizzy/unsteadyprobably predominantly driven by her posterior circulation disease, but also probably compounded by poor perfusion from the bradycardia. While it likely will not be quite as simple as "following a nava curve" of perfusion and symptoms, will hold off on blood pressure management until she worked with therapyif her symptoms are essentially resolved with a degree of hypertension, she may need permissive hypertension, and then we can gently titrate to a range that she can tolerate. Discussed with family that it is not likely to be linear, but that would be the goal. Weakness, fatigue, forgetfulness -Appears to have a degree of dementia probably at least moderate -Mild B12 insufficiency may be a little bit contributoryreplace -Bradycardia/poor perfusion may be a bit contributoryespecially to the fatiguefollow DVT prophylaxisLovenox Subjective Nini is a n 87 yo F w/ hx of situational depression, edema, PVCs, reflux esophagitis, hypercholesterolemia, hypothyroidism, SNHL, tinnitus, recurrent UTI, and HTN who presents for evaluation and management of dizziness. 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 Patient was resting comfortably in bed upon arrival, but required orientation as to whom she was speaking multiple times. She notes no changes in symptoms from presentation. She notes that prior to presentation she was having mild headaches and occasional blurred vision, but neither of these had acutely changed prior to presentation. She denies any weakness in moving her UE or LE. She denies any chest pain, dyspnea, abdominal pain, or bowel/bladder changes. She does note awareness of her cognitive decline and states she has required more help from her . Patient is significantly concerned about the state of her finances and expresses desire to leave and rectify the situation. Patient revisited this topic frequently. Review of Systems Review of Systems: As per HPI Physical Exam Physical Exam: Gen: AOx3 but generally confused, NAD, interactive HEENT: NINA, neck supple, no LAD, no thyromegaly, no JVD Resp:Non-labored, no wheezing/rhonchi/rales, CTAB CV:RRR, normal S1/S2, no M/R/G Abd: Soft, non-distended, no TTP, normoactive bowels, no masses Extr: 2+ dp bilaterally, bilateral LE edema 2+ Neuro: Symmetric movements of UE and LE, CN II-XII grossly intact Skin: No rashes lesions or erythema Results & Data Results & Data ([facility]) Vital Signs (Past 12 Hours) Vital Signs Temp Pulse Pulse Resp BP Pulse Ox O2 Del Method 03/26/22 04:56 36.3 C L 62 18 192/71 H 96 Nasal Cannula 03/25/22 21:51 61 03/25/22 21:52 Nasal Cannula 03/25/22 21:52 36.5 C 59 L 18 153/74 H 98 Nasal Cannula 03/25/22 21:09 58 L 96 Nasal Cannula 03/25/22 21:03 24 96 Nasal Cannula O2 Flow Rate 03/26/22 04:56 2 03/25/22 21:51 03/25/22 21:52 3 03/25/22 21:52 3 03/25/22 21:09 3 03/25/22 21:03 3 Laboratory Results Abnormal lab results 03/25/22 03/25/22 03/25/22 Range/Units 12:43 12:43 12:57 WBC 10.88 H (4.8-10.8) K/ul POC Hgb 16.3 H (12.0-16.0) g/dl Hct 45.5 H (34.1-44.9) % POC Hct 48 H (37-47) % Neut # (Auto) (1.4-6.5) K/uL Terrell # (Auto) (0.24-0.82) K/uL Immature Gran # (Auto) (0.00-0.02) K/uL Sodium 135 L (136-145) mmol/L Potassium (3.5-5.1) mmol/L POC Chloride 100 L (101-112) mmol/L POC BUN 23 H (7-18) mg/dl Creatinine 1.22 H (0.6-1.2) mg/dl Glucose 156 H (70-99(Fasting)) mg/dl POC Glucose (other) 156 H (70-99) mg/dl Hemoglobin A1c (4.5-5.6) % Cholesterol (0-200) mg/dl Ur Leukocyte Esterase (Negative) U Epithel Cells (Auto) (0-5) /lpf 03/26/22 03/26/22 03/26/22 Range/Units 04:25 06:54 06:54 WBC 12.53 H (4.8-10.8) K/ul POC Hgb (12.0-16.0) g/dl Hct 45.1 H (34.1-44.9) % POC Hct (37-47) % Neut # (Auto) 8.60 H (1.4-6.5) K/uL Terrell # (Auto) 1.21 H (0.24-0.82) K/uL Immature Gran # (Auto) 0.05 H (0.00-0.02) K/uL Sodium (136-145) mmol/L Potassium 3.4 L (3.5-5.1) mmol/L POC Chloride (101-112) mmol/L POC BUN (7-18) mg/dl Creatinine (0.6-1.2) mg/dl Glucose 118 H (70-99(Fasting)) mg/dl POC Glucose (other) (70-99) mg/dl Hemoglobin A1c (4.5-5.6) % Cholesterol 204 H (0-200) mg/dl Ur Leukocyte Esterase Trace H (Negative) U Epithel Cells (Auto) 5-10 H (0-5) /f 03/26/22 Range/Units 06:54 WBC (4.8-10.8) K/ul POC Hgb (12.0-16.0) g/dl Hct (34.1-44.9) % POC Hct (37-47) % Neut # (Auto) (1.4-6.5) K/uL Terrell # (Auto) (0.24-0.82) K/uL Immature Gran # (Auto) (0.00-0.02) K/uL Sodium (136-145) mmol/L Potassium (3.5-5.1) mmol/L POC Chloride (101-112) mmol/L POC BUN (7-18) mg/dl Creatinine (0.6-1.2) mg/dl Glucose (70-99(Fasting)) mg/dl POC Glucose (other) (70-99) mg/dl Hemoglobin A1c 6.7 H (4.5-5.6) % Cholesterol (0-200) mg/dl Ur Leukocyte Esterase (Negative) U Epithel Cells (Auto) (0-5) /lpf Diagnostic Findings Head CT 03/25/22 12:29 FINDINGS: This study is mildly compromised by motion artifact. White matter hypodensity suggests small vessel disease. No acute intracranial hemorrhage, midline shift or mass effect is present. The ventricular system is unremarkable. The basal cisterns are patent. No extra-axial collections are present. There are no findings to suggest acute dural sinus thrombosis or acute territorial infarct. No significant calvarial abnormalities are present. Visualized portions of the sinuses and mastoid air cells are clear. IMPRESSION: No acute intracranial findings. Exam mildly compromised by artifact. Head CTA 03/25/22 12:37 FINDINGS: The imaged bilateral internal carotid arteries are patent. 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 This aneurysm is adjacent to a 7 x 5 x 4 mm aneurysm arising from the clinoid segment on image 103. No evidence of aneurysm rupture. The bilateral internal carotid arteries are patent. The bilateral anterior and middle cerebral arteries are also patent. There is a short segment high-grade stenosis present within the P2 segment of the left posterior cerebral artery on image 96 series 7. The basilar and posterior cerebral arteries are patent. The cerebral venous sinuses appear patent. There is no abnormal intracranial enhancement identified. Age-related involutional changes with chronic microvascular ischemic disease. IMPRESSION: 1. 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 No evidence of aneurysm rupture. 2. Focal short segment area of high-grade stenosis within the left posterior cerebral artery. Neck CTA 03/25/22 12:37 FINDINGS: The aortic arch and proximal great vessels are widely patent. There is no significant stenosis, occlusion, or dissection identified within the bilateral common carotid, internal carotid, or vertebral arteries. Mild to mo derate calcified plaque within the bilateral carotid bifurcations. IMPRESSION: No significant stenosis, occlusion, or dissection identified within the carotid or vertebral arteries. Chest X-Ray 03/25/22 16:05 FINDINGS: 2 AP, portable, upright chest radiographs are compared to study dated 02/06/2019. The heart is enlarged. Atherosclerotic calcification of the thoracic aorta. The pulmonary vasculature is noncongested. Chronic interstitial thickening similar to previous. The lungs and pleural spaces are otherwise clear noting bibasilar scarring/atelectasis. No pneumothorax is seen. The skeletal structures are osteopenic. The bony thorax is grossly intact. IMPRESSION: Cardiomegaly with no active disease in the chest. Brain MRI 03/26/22 07:16 FINDINGS: Motion degraded exam. No restricted diffusion to suggest acute or subacute infarct. Midline structures appear unremarkable. Degenerative changes of the cervical spine. Study is mildly motion degraded.No acute intracranial hemorrhage, midline shift, abnormal extra-axial collection, hydrocephalus or intracranial mass. Cerebral venous sinuses and major arterial flow voids appear patent. Prior bilateral lens repair. Skull and soft tissues are within normal limits. Mastoid air cells and paranasal sinuses are generally clear. Involutional changes with mild to moderate T2/FLAIR hyperintense foci throughout the white matter. Slow venous flow noted within the left transverse and sigmoidal sinuses. IMPRESSION: 1. No acute intracranial abnormality. No acute or subacute infarct. 2. Involutional changes with chronic microvascular ischemic disease. Resident Activity Tracking Resident Involvement: Resident Care Provided Care Provided: Adult [facility]
[2022-03-26 07:52] LABS: Basophils # (auto) 0.11 K/uL (0-0.2); Basophils % (auto) 0.9 %; Eosinophils # (auto) 0.06 K/uL (0-0.50); Eosinophils % (auto) 0.5 %; Hematocrit (blood only) 45.1 % (34.1-44.9); Hemoglobin 15.6 g/dl (12.0-16.0); Immature Granulocytes # (auto) 0.05 K/uL (0.00-0.02); Immature Granulocytes % (auto) 0.4 %; Mean Corpuscular Hemoglobin 31.6 pg (25.0-34.0); Mean Corpuscular Hgb Conc 34.6 g/dL (32.0-36.0); Mean Corpuscular Volume 91.5 fL (80.0-100.0); Mean Platelet Volume 10.2 fL (9.4-12.3); Monocytes # (auto) 1.21 K/uL (0.24-0.82); Monocytes % (auto) 9.7 %; Neutrophils % (auto) 68.5 %; Platelet Count 264 K/uL (130-400); RDW Coefficient of Variation 13.1 % (11.5-14.5); RDW Standard Deviation 43.6 fL (36.4-46.3); Red Blood Count 4.93 M/uL (3.93-5.22); White Blood Count 12.53 K/ul (4.8-10.8)
[2022-03-26 08:23] LABS: BUN Creatinine Ratio 17.8 (10-20); Calcium 9.3 mg/dl (8.5-10.1); Chol HDL Ratio 4.9 (0-5); Creatinine Clr Calc Pharmacy 33.4 ml/min; Est GFR (African American) 48.4 ml/min; Est GFR (Non-African American) 41.7 ml/min; Potassium 3.4 mmol/L (3.5-5.1)
[2022-03-26] MEDS: SERTRALINE HCL 50 MG TABLET PO SCH (09:36)
[2022-03-26] MEDS: lisinopril 40 MG TAB PO SCH (09:36)
[2022-03-26] MEDS: OMEGA-3 (PURIFIED FISH OIL) 1 GM CAP PO SCH (09:37)
[2022-03-26] MEDS: PRAVASTATIN SOD 20 MG TAB PO SCH (09:37)
[2022-03-26] MEDS: ASCORBIC ACID 500 MG TAB PO SCH (09:37)
[2022-03-26] MEDS: MAGNESIUM OXIDE 400 MG TAB PO SCH (09:37)
[2022-03-26] MEDS: ASPIRIN 81 MG ECTAB PO SCH (09:37)
[2022-03-26] MEDS: CHOLECALCIFEROL 1,000 UNITS 25 MCG TAB PO SCH (09:37)
[2022-03-26] MEDS: hydroCHLOROthiazide 25 MG TAB PO SCH (09:37)
[2022-03-26] MEDS: ENOXAPARIN INJ 40 MG/0.4 ML SYR SQ SCH (09:38)
[2022-03-26] MEDS ORDERED: LORazepam 0.5 MG TAB PO STA (10:14)
[2022-03-26 10:29] LABS: Estimated Average Glucose 146 mg/dl; Hemoglobin A1C 6.7 % (4.5-5.6)
[2022-03-26] MEDS: CYANOCOBALAMIN (B-12) 500 MCG TABLET PO SCH (10:41)
--- NOTE | 2022-03-26 11:41 | Magnetic Resonance Report ---
MR brain wo con HISTORY: 87 years-old Female dizziness, confusion acutely altered mental status COMPARISON: Head CT March 25, 2022, brain MRI 09/17/2015 TECHNIQUE: Multiplanar multisequence MRI of the brain was obtained without the use of contrast. FINDINGS: Motion degraded exam. No restricted diffusion to suggest acute or subacute infarct. Midline structure s appear unremarkable. Degenerative changes of the cervical spine. Study is mildly motion degraded. No acute intracranial hemorrhage, midline shift, abnormal extra-axial collection, hydrocephalus or in tracranial mass. Cerebral venous sinuses and major arterial flow voids appear patent. Prior bilateral lens repair. Skull and soft tissues are within normal limits. Mastoid air cells and paranasal sinuse s are generally clear. Involutional changes with mild to moderate T2/FLAIR hyperintense foci througho ut the white matter. Slow venous flow noted within the left transverse and sigmoidal sinuses. IMPRESSION: 1. No acute intracranial abnormality. No acute or subacute infarct. 2. Involutional changes with chronic microvascular ischemic disease. ACT 112: Negative or not required by law. The above report was generated using voice recognition software. It may contain grammatical, syntax o r spelling errors. Electronically signed by: Magdiel Birmingham M.D. 03/26/2022 11:39 AM
--- NOTE | 2022-03-26 19:06 | Billing Data ---
Date of Service March 26, 2022 Coding Level of Care Code 15813 SUB INP/OBS CARE MIN
--- NOTE | 2022-03-26 19:54 | XCELERA ---
[id number]
--- NOTE | 2022-03-27 07:05 | Hospitalist Progress Note ---
Date of Service March 27, 2022 Assessment & Plan (1) Dizziness: (2) Bradycardia: (3) Memory loss: (4) Hypercholesterolemia: (5) Hypertension: (6) DVT prophylaxis: (7) Discharge planning issues: Plan Nini is a n 87 yo F w/ hx of situational depression, edema, PVCs, reflux esophagitis, hypercholesterolemia, hypothyroidism, SNHL, tinnitus, recurrent UTI, and HTN who presents for evaluation and management of dizziness. 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 Dizziness - Likely multifactorial in nature - Considered 2/2 bradycardia vs stenosis of posterior circulation vs. B12 deficiency vs Hypothyroid vs Progressive Dementia - Labs ordered to evaluate for underlying causes - MRI ordered; no acute changes - Coreg and Diltiazem held d/t bradycardia on presentation --- Continue telemetry, following for tachy/ghassan --- Will pend patient's symptoms during PT evaluation during admission Bradycardia - Symptomatic bradycardia evidenced on admission - Patient has remained sinus rhythm with rates of 60-70 overnight and today - Coreg and Diltiazem held d/t bradycardia - 03/26 Echo EF 65-70%, moderate concentric LVH, mild MR, mild pHTN w/ RSVP 41 mmHg (elevated compared to 02/26/20) --- Continue hold on Coreg and Dilt, possible a/w medications --- Brief episode of sinus bradycardia in 50s on telemetry last night, EKG in AM showing NSR Stenosis of Posterior Circulation - 03/25 Head CTA showing: Focal short segment area of high-grade stenosis within the left posterior cerebral artery. - 03/26 Brain MRI showing: No acute intracranial abnormality. No acute or subacute infarct. Involutional changes with chronic microvascular ischemic disease. - 03/26 Lipid Panel overall unremarkable (total cholesterol mildly elevated), A1c 6.7 (indicating diabetes, no current management) --- Continue to follow BP, elevation may be required for perfusion d/t stenosis, will pend PT/OT eval HTN - Follow BP - Prefer to have BP lower in setting of vascular disease - Pt. will likely require permissive HTN for perfusion - Coreg and Diltiazem held d/t bradycardia - Patient receives Lisinopril 40 mg, HCTZ 25 mg, Diltiazem 240 mg, and Carvedilol 12.5 mg daily at home --- Continue to hold Coreg and Dilt --- BP elevated in AM prior to scheduled BP medications, improved w/ home BP medications (Lisinopril/HCTZ) Memory Loss - Chronic, progressive - MRI details above --- Patient's family describes moderate dementia (03/26), clinical picture suggestive of progression to severe dementia given chronic microvascular changes on MRI --- Risk of delirium discussed with family Hypokalemia - K 3.2, repleted with 40 mEq PO KCl --- Recheck in AM w/ Mag and Phos Diabetes - A1c 6.7, no current medical management Hypothyroidism - Home dose unknown to patient - Notes forgotten doses - Possible contributing factor - 03/26 TSH 2.1 --- Continue home Levothyroxine 88 mcg B12 Deficiency - 03/26 B12 381 (pt. level < 400) --- Continue to Supplement 1000 mcg daily Hypercholesterolemia - 03/26 Lipid Panel overall unremarkable (mildly elevated total cholesterol) --- Continue home Pravastatin 20 mg Depression - Continue home Sertraline 25 mg PO LFEN: Regular Code status: DNR/DNI DVT ppx: Lovenox Isolation: None Dispo:Med/Tele, PT/OT eval Admission and Anticipated Discharge Date Admission Date: March 25, 2022 Supervising Physician Co-Signing Physician Notes I personally examined the patient and verified all mcneill points of history and exam, discussed case, and agree with decision making with Dr Xiao briefly saw family in the hallway, but they had gone home by the time i was able to twenty-nine palms back to see patient. she notes feeling better. had mild headache earlier but resolved- thought it was a tension headache. hasn't worked w PT yet but also notes dizziness resolved. Vitals noted, in general she is sleeping comfortably no distress. Breathing unlabored. No focal or lateralizing neurodeficits at rest. Dizzinessseems to be 2 different problems, dizzy and lightheaded --- Lightheaded appears to probably be symptomatic bradycardiafrom beta-jessika and calcium channel blockerdiscussed with family that the 2 major possibilities for why chronic stable medications may suddenly be causing a degree of bradycardia would be slower metabolism as she ages essentially "effectively raising the dose", or an early sign of progression towards sick sinus syndrome. Currently holding both metoprolol and diltiazem and following heart rate/rhythmhas been sinus and sinus bradycardia. If she does not show any sort of sick sinus/inappropriate bradycardia off of the medications, would like to obtain an event monitor as an outpatient. improvement in bradycardia likely has improved overall situation due to better perfusion. --- Dizzy/unsteadyprobably predominantly driven by her posterior circulation disease, but also probably compounded by poor perfusion from the bradycardia. While it likely will not be quite as simple as "following a nava curve" of perfusion and symptoms, will hold off on blood pressure management until she worked with therapyif her symptoms are essentially resolved with a degree of hypertension, she may need permissive hypertension, and then we can gently titrate to a range that she can tolerate. Discussed with family that it is not likely to be linear, but that would be the goal. right now doing well Weakness, fatigue, forgetfulness -Appears to have a degree of dementia probably at least moderate -Mild B12 insufficiency may be a little bit contributoryreplace -Bradycardia/poor perfusion may be a bit contributoryespecially to the fatiguefollow DVT prophylaxisLovenox Dispositionlives in the [place] system, right now anticipated need for SNF, but then she will likely build to work [facility] way [facility] ordered, case management aware Subjective Nini is a n 87 yo F w/ hx of situational depression, edema, PVCs, reflux esophagitis, hypercholesterolemia, hypothyroidism, SNHL, tinnitus, recurrent UTI, and HTN who presents for evaluation and management of dizziness. 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 Patient was resting comfortably in bed upon arrival, but required reorientation to conversation. She notes a mild headache this morning, which was resolved by Tylenol, and states that she is otherwise feeling well. She denies any weakness in moving her UE or LE. She denies any chest pain, dyspnea, abdominal pain, or bowel/bladder changes. Increased confusion noted at visit and by nursing. Nursing noted an elevation of BP w/ the headache this AM prior to home BP medications, pressure improved following BP medication w/o additional intervention. Nursing notes that patient requires frequent re-orientation as she often does not know where she is, but that she has been overall pleasant. Review of Systems Review of Systems: As per HPI Physical Exam Physical Exam: Gen: AOx2 but generally confused, NAD, interactive HEENT: NINA, no JVD Resp:Non-labored, no wheezing/rhonchi/rales, CTAB CV:RRR, normal S1/S2, no M/R/G Abd: Soft, non-distended, no TTP, normoactive bowels, no masses Extr: 2+ dp bilaterally, bilateral LE edema 2+ Results & Data Results & Data ([facility]) Vital Signs (Past 12 Hours) Vital Signs Temp Pulse Pulse Resp BP Pulse Ox O2 Del Method 03/27/22 03:52 36.7 C 68 18 179/80 H 90 Nasal Cannula 03/27/22 02:48 59 L 03/26/22 22:56 174/86 H 03/26/22 22:47 36.9 C 69 18 185/70 H 96 Nasal Cannula 03/26/22 19:09 36.6 C 72 18 176/84 H 96 Nasal Cannula 03/26/22 19:33 Nasal Cannula O2 Flow Rate 03/27/22 03:52 1 03/27/22 02:48 03/26/22 22:56 03/26/22 22:47 1 03/26/22 19:09 1 03/26/22 19:33 1 Laboratory Results Abnormal lab results 03/27/22 03/27/22 Range/Units 06:52 06:52 Hct 45.1 H (34.1-44.9) % Banks # (Auto) 1.02 H (0.24-0.82) K/uL Immature Gran # (Auto) 0.05 H (0.00-0.02) K/uL Potassium 3.2 L (3.5-5.1) mmol/L BUN 29 H (6-23) mg/dl BUN/Creatinine Ratio 24.2 H (10-20) Glucose 132 H (70-99(Fasting)) mg/dl ECG Additional Comments: 03/27 EKG: NSR 03/27 Tele: Overnight Sinus Bradycardia in 50s Resident Activity Tracking Resident Involvement: Resident Care Provided Care Provided: Adult [facility]
[2022-03-27] MEDS: LEVOTHYROXINE SODIUM 88 MCG TABLET PO SCH (07:19)
[2022-03-27] MEDS: lisinopril 40 MG TAB PO SCH (07:59)
[2022-03-27] MEDS: hydroCHLOROthiazide 25 MG TAB PO SCH (07:59)
[2022-03-27] MEDS: ASPIRIN 81 MG ECTAB PO SCH (08:00)
[2022-03-27 08:05] LABS: Basophils # (auto) 0.08 K/uL (0-0.2); Basophils % (auto) 0.8 %; Eosinophils # (auto) 0.11 K/uL (0-0.50); Eosinophils % (auto) 1.1 %; Hematocrit (blood only) 45.1 % (34.1-44.9); Hemoglobin 15.3 g/dl (12.0-16.0); Immature Granulocytes # (auto) 0.05 K/uL (0.00-0.02); Immature Granulocytes % (auto) 0.5 %; Lymphocytes # (auto) 1.91 K/uL (1.2-3.4); Lymphocytes % (auto) 19.8 %; Mean Corpuscular Hemoglobin 30.9 pg (25.0-34.0); Mean Corpuscular Hgb Conc 33.9 g/dL (32.0-36.0); Mean Corpuscular Volume 91.1 fL (80.0-100.0); Mean Platelet Volume 10.4 fL (9.4-12.3); Monocytes # (auto) 1.02 K/uL (0.24-0.82); Monocytes % (auto) 10.6 %; Neutrophils # (auto) 6.49 K/uL (1.4-6.5); Neutrophils % (auto) 67.2 %; Platelet Count 280 K/uL (130-400); RDW Coefficient of Variation 12.9 % (11.5-14.5); RDW Standard Deviation 42.6 fL (36.4-46.3); Red Blood Count 4.95 M/uL (3.93-5.22); White Blood Count 9.66 K/ul (4.8-10.8)
[2022-03-27 08:30] LABS: BUN Creatinine Ratio 24.2 (10-20); Calcium 8.9 mg/dl (8.5-10.1); Creatinine Clr Calc Pharmacy 32.8 ml/min; Est GFR (African American) 47.4 ml/min; Est GFR (Non-African American) 40.9 ml/min; Potassium 3.2 mmol/L (3.5-5.1)
[2022-03-27] MEDS: MAGNESIUM OXIDE 400 MG TAB PO SCH (09:45)
[2022-03-27] MEDS: ASCORBIC ACID 500 MG TAB PO SCH (09:45)
[2022-03-27] MEDS: PRAVASTATIN SOD 20 MG TAB PO SCH (09:46)
[2022-03-27] MEDS: SERTRALINE HCL 50 MG TABLET PO SCH (09:46)
[2022-03-27] MEDS: OMEGA-3 (PURIFIED FISH OIL) 1 GM CAP PO SCH (09:48)
[2022-03-27] MEDS: CHOLECALCIFEROL 1,000 UNITS 25 MCG TAB PO SCH (09:49)
[2022-03-27] MEDS: ENOXAPARIN INJ 40 MG/0.4 ML SYR SQ SCH (09:49)
[2022-03-27] MEDS: CYANOCOBALAMIN (B-12) 500 MCG TABLET PO SCH (09:49)
[2022-03-27] MEDS ORDERED: POTASSIUM CHLORIDE CRTAB 20 MEQ TABCR PO ONE (10:30)
--- NOTE | 2022-03-27 16:46 | Billing Data ---
Date of Service March 27, 2022 Coding Level of Care Code 89363 SUB INP/OBS CARE MIN
[2022-03-27] MEDS: POTASSIUM CHLORIDE CRTAB 20 MEQ TABCR PO SCH (20:07)
--- NOTE | 2022-03-27 22:00 | Electrocardiogram Report ---
Test Reason : Blood Pressure : / mmHG Vent. Rate : 064 BPM Atrial Rate : 064 BPM P-R Int : 178 ms QRS Dur : 088 ms QT Int : 438 ms P-R-T Axes : 046 -11 126 degrees QTc Int : 451 ms Normal sinus rhythm Minimal voltage criteria for LVH, may be normal variant Nonspecific ST and T wave abnormality Abnormal ECG When compared with ECG of 25-MAR-2022 12:43, Premature ventricular complexes are no longer Present Minimal criteria for Septal infarct are no longer Present Confirmed by Cory Fofana ([id number]) on 03/27/2022 10:00:37 PM Referred By: REFERRED SELF Confirmed By:Cory Fofana
[2022-03-28] MEDS: LEVOTHYROXINE SODIUM 88 MCG TABLET PO SCH (05:43)
--- NOTE | 2022-03-28 06:31 | Electrocardiogram Report ---
Test Reason : Blood Pressure : / mmHG Vent. Rate : 080 BPM Atrial Rate : 080 BPM P-R Int : 172 ms QRS Dur : 086 ms QT Int : 384 ms P-R-T Axes : 038 -19 122 degrees QTc Int : 442 ms Normal sinus rhythm Left ventricular hypertrophy with repolarization abnormality Poor R wave progression, consider anterior WI vs. lead placement vs. LVH Abnormal ECG When compared with ECG of 26-MAR-2022 05:33, No significant change was found Confirmed by Cory Fofana ([id number]) on 03/28/2022 6:31:19 AM Referred By: REFERRED SELF Confirmed By:Cory Fofana
[2022-03-28 06:54] LABS: Basophils # (auto) 0.08 K/uL (0-0.2); Eosinophils # (auto) 0.09 K/uL (0-0.50); Eosinophils % (auto) 1.1 %; Hematocrit (blood only) 41.9 % (34.1-44.9); Hemoglobin 14.4 g/dl (12.0-16.0); Immature Granulocytes # (auto) 0.06 K/uL (0.00-0.02); Immature Granulocytes % (auto) 0.7 %; Lymphocytes # (auto) 1.97 K/uL (1.2-3.4); Lymphocytes % (auto) 23.9 %; Mean Corpuscular Hemoglobin 31.4 pg (25.0-34.0); Mean Corpuscular Hgb Conc 34.4 g/dL (32.0-36.0); Mean Corpuscular Volume 91.3 fL (80.0-100.0); Mean Platelet Volume 10.5 fL (9.4-12.3); Monocytes # (auto) 0.81 K/uL (0.24-0.82); Monocytes % (auto) 9.8 %; Neutrophils # (auto) 5.23 K/uL (1.4-6.5); Neutrophils % (auto) 63.5 %; Platelet Count 256 K/uL (130-400); RDW Standard Deviation 42.9 fL (36.4-46.3); Red Blood Count 4.59 M/uL (3.93-5.22); White Blood Count 8.24 K/ul (4.8-10.8)
--- NOTE | 2022-03-28 07:07 | Hospitalist Progress Note ---
Date of Service March 28, 2022 Assessment & Plan (1) Dizziness: (2) Bradycardia: (3) Memory loss: (4) Hypercholesterolemia: (5) Hypertension: (6) DVT prophylaxis: (7) Discharge planning issues: Plan Nini is a n 87 yo F w/ hx of situational depression, edema, PVCs, reflux esophagitis, hypercholesterolemia, hypothyroidism, SNHL, tinnitus, recurrent UTI, and HTN who presents for evaluation and management of dizziness. 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 Dizziness - Likely multifactorial in nature - Considered 2/2 bradycardia vs stenosis of posterior circulation vs. B12 deficiency vs Hypothyroid vs Progressive Dementia - Labs unremarkable - MRI ordered; no acute changes - Coreg and Diltiazem held d/t bradycardia on presentation due to concerns of bradycardia. --- Continue telemetry, following for tachy/ghassan. Since admission patient reports less dizziness and had none on 03/28. Bradycardia with LVOT - Symptomatic bradycardia evidenced on admission - Patient has remained sinus rhythm with rates of 60-80 since 03/27 while Coreg and Diltiazem were held. - 03/26 Echo EF 65-70%, moderate concentric LVH, mild MR, mild pHTN w/ RSVP 41 mmHg (elevated compared to 02/26/20) ---resumed cardizem at lower dose. follow. HTN - Patient home meds - Lisinopril 40 mg, HCTZ 25 mg, Diltiazem 240 mg, and Carvedilol 12.5 mg daily at home - Prefer to have BP lower in setting of vascular disease - Pt. may require permissive HTN if symptoms d/t stenosis of the posterior circulation as seen on head CTA. - Coreg and Diltiazem held d/t bradycardia ---Cardio consulted for HTN management in setting of bradycardia and LVOT. ---BP running high. Resumed cardizem at lower dose of 120mgs. Would prefer amlodipine in this setting, though patient has an unknown allergy to this medication. Will seek further info into allergy. ---Continue to hold Carvedilol at this time. BP goal should under 160 systolic and a HR over 60. Stenosis of Posterior Circulation - 03/25 Head CTA showing: Focal short segment area of high-grade stenosis within the left posterior cerebral artery. - 03/26 Brain MRI showing: No acute intracranial abnormality. No acute or subacute infarct. Involutional changes with chronic microvascular ischemic disease. - 03/26 Lipid Panel overall unremarkable (total cholesterol mildly elevated), A1c 6.7 (indicating diabetes, no current management) --- Continue to follow BP, elevation may be required for perfusion d/t stenosis, though tighter BP control should be achieved with a goal of systolic under 160. pend PT/OT eval Memory Loss - Chronic, progressive - MRI details above --- Patient's family describes moderate dementia (03/26), clinical picture suggestive of progression to severe dementia given chronic microvascular changes on MRI --- Risk of delirium discussed with family Hypokalemia - K 3.2, repleted with 40 mEq PO KCl on 03/27 Hypomagnesium -Mag was 1.6 on 03/28. -Mag repleted on 03/28. Hypophosphates -Phosphorus was 2.1 on 03/28. -Phosphorus repleted on 03/28 ---need to monitor phosphorus or magnesium at this time. Diabetes - A1c 6.7, no current medical management Hypothyroidism - Home dose unknown to patient - Notes forgotten doses - Possible contributing factor - 03/26 TSH 2.1 --- Continue home Levothyroxine 88 mcg B12 Deficiency - 03/26 B12 381 (pt. level < 400) --- Continue to Supplement 1000 mcg daily Hypercholesterolemia - 03/26 Lipid Panel overall unremarkable (mildly elevated total cholesterol) --- Continue home Pravastatin 20 mg Depression - Continue home Sertraline 25 mg PO FEN: Regular Code status: DNR/DNI DVT ppx: Lovenox Isolation: None Dispo:Med/Tele, PT/OT eval Thank you for allowing me to participate in the care of your patient. -Dr. Manjit Gamez PGY1 Admission and Anticipated Discharge Date Admission Date: March 25, 2022 Supervising Physician Co-Signing Physician Notes Resident Physician Supervision Note: I independently interviewed and examined the patient and verified the mcneill history and physical, reviewed labs and image studies and agree with resident findings and care plan. Subjective Patient was seen beside this AM. Patient is A&Ox 2 (self and location). She has no issues or concerns at this time. She does not report any more instances of dizziness. She does have occasional ROSENTHAL that improve with Tylenol since admission. She reports no ROSENTHAL today. Review of Systems Review of Systems: Unobtainable due to cognitive status Physical Exam Constitutional: WD/WN, vitals as above comfortable; no acute distress Respiratory: normal respiratory effort, lungs clear to auscultation Cardiovascular: RRR, no murmur, no edema Chest (Breasts): normal inspection/palpation of breasts Gastrointestinal (Abdomen): normal bowel sounds, soft, nontender, no hepatosplenomegaly Musculoskeletal: no cyanosis or clubbing, extremities motor strength 5/5 Skin: no rashes, warm and dry Psychiatric: Orientation: alert, oriented to person and oriented to place; + not oriented to time Results & Data Results & Data ([facility]) Vital Signs (Past 12 Hours) Vital Signs Temp Pulse Pulse Resp BP Pulse Ox Pulse Ox 03/27/22 22:29 65 03/28/22 03:44 36.6 C 76 18 190/78 H 92 03/27/22 19:24 03/27/22 21:00 92 03/27/22 22:49 36.6 C 70 18 197/82 H 94 03/27/22 19:35 36.6 C 70 18 159/79 H 92 O2 Del Method O2 Del Method 03/27/22 22:29 03/28/22 03:44 Room Air 03/27/22 19:24 Room Air 03/27/22 21:00 Room Air 03/27/22 22:49 Room Air 03/27/22 19:35 Room Air Resident Activity Tracking Resident Involvement: Resident Care Provided Care Provided: Adult Hospital Medicine
[2022-03-28 07:28] LABS: BUN Creatinine Ratio 27.7 (10-20); Calcium 9.1 mg/dl (8.5-10.1); Est GFR (African American) 51.5 ml/min; Est GFR (Non-African American) 44.4 ml/min; Magnesium 1.6 mg/dl (1.7-2.4); Phosphorus 2.1 mg/dl (2.5-4.9); Potassium 3.8 mmol/L (3.5-5.1)
[2022-03-28] MEDS: CHOLECALCIFEROL 1,000 UNITS 25 MCG TAB PO SCH (08:41)
[2022-03-28] MEDS: OMEGA-3 (PURIFIED FISH OIL) 1 GM CAP PO SCH (08:41)
[2022-03-28] MEDS: POTASSIUM CHLORIDE CRTAB 20 MEQ TABCR PO SCH ×2 (08:41→20:16)
[2022-03-28] MEDS: ASPIRIN 81 MG ECTAB PO SCH (08:41)
[2022-03-28] MEDS: SERTRALINE HCL 50 MG TABLET PO SCH (08:41)
[2022-03-28] MEDS: ASCORBIC ACID 500 MG TAB PO SCH (08:41)
[2022-03-28] MEDS: PRAVASTATIN SOD 20 MG TAB PO SCH (08:41)
[2022-03-28] MEDS: hydroCHLOROthiazide 25 MG TAB PO SCH (08:41)
[2022-03-28] MEDS: lisinopril 40 MG TAB PO SCH (08:41)
[2022-03-28] MEDS: ENOXAPARIN INJ 40 MG/0.4 ML SYR SQ SCH (08:42)
[2022-03-28] MEDS: CYANOCOBALAMIN (B-12) 500 MCG TABLET PO SCH (08:42)
[2022-03-28] MEDS: MAGNESIUM OXIDE 400 MG TAB PO SCH (08:42)
[2022-03-28] MEDS ORDERED: POTASSIUM PHOS 3 MMOL/1 ML INFUSION IV STA (12:17)
[2022-03-28] MEDS ORDERED: POTASSIUM PHOSPHATE 15 MMOL in SODIUM CHLORIDE 0.9% 250 ML IV ONE (12:30)
[2022-03-28] MEDS: MAGNESIUM SULFATE / D5W 1 GM/100 ML BAG IV SCH ×2 (12:46→14:30)
[2022-03-28] MEDS ORDERED: dilTIAZem HCL 120 MG CAPCR PO SCH (16:15)
[2022-03-28] MEDS ORDERED: dilTIAZem HCL 120 MG CAPCR PO ONE (17:28)
--- NOTE | 2022-03-28 18:28 | Cardiology Consultation ---
Date of Consultation March 28, 2022 Assessment & Plan (1) Bradycardia: (2) Cerebral artery disease: (3) Dynamic left ventricular outflow obstruction: Plan 87-year-old woman with cerebrovascular disease and dynamic LVOT obstruction noted only at the time of a dobutamine stress echocardiogram who developed bradycardia prompting discontinuation of her carvedilol and diltiazem. Examination and current echocardiogram do not indicate any dynamic LVOT obstruction, this is only of theoretical concern at this point. In order to prevent recurrent bradycardia, would not initiate both carvedilol and diltiazem, but now that her heart rate was recovered suspect that she suspect that she would tolerate some degree of negative chronotropic medication. Therefore, recommend restarting diltiazem but at lower dose (reducing dose from 240 mg daily to 120 mg daily). Do not restart carvedilol. Had considered amlodipine, but she apparently has an intolerance to this. Would allow for some degree of permissive hypertension given her cerebrovascular disease, a reasonable target goal would be systolic blood pressure of 160 mmHg or less. Reluctant to discontinue diuretic, since this is often an important component of blood pressure control, but if she were to develop any evidence of dynamic LVOT obstruction this would need to be stopped. Further recommendations based upon her response to reduced dose diltiazem. At the time of discharge, she should follow-up with her primary fact checker, Dr. Fofana. History of Present Illness Reason for Consultation: HTN mangment in setting of bradycardia and LVOT Requesting Physician: Genoveva Wills MD Attending Physician: Genoveva Wills MD History of Present Illness 87-year-old woman with history of "forgetfulness" which has been progressive over the past 6 to 12 months, admitted 03/25/2022 and noted to be bradycardic and to have a focal area of high-grade stenosis in the left posterior cerebral artery. At the time of a dobutamine stress echocardiogram in 2019 she showed evidence of left ventricular outflow tract dynamic obstruction which was significant at peak stress but with no gradient noted at rest. Her diltiazem and carvedilol were discontinued due to bradycardia, consultation currently is to help guide selection of vasoactive medication in the context of potential LVOT dynamic outflow tract obstruction. The patient had no complaints and was sitting comfortably. She denied chest pain, dyspnea, or palpitations. Apparently, she has shown some degree of disequilibrium when walking. Her blood pressures have been quite elevated with systolic generally in the 170-190 mmHg range and widely variable diastolic ranging from 70-116 mmHg. Heart rate was in the 50s prior to discontinuation of medication, subsequently it has been in the 70-80 bpm range. Allergies Allergy/AdvReac Type Severity Reaction Status Date / Time ciprofloxacin Allergy Intermediate EDEMA Verified 03/25/22 16:57 diltiazem Allergy Intermediate EDEMA Verified 03/25/22 16:57 gabapentin Allergy Intermediate SWELLING Verified 03/25/22 16:57 Penicillins Allergy Intermediate HIVES Verified 03/25/22 16:57 tramadol Allergy Mild Unknown Verified 03/25/22 16:57 amlodipine Allergy Unknown Unknown Verified 03/25/22 16:57 Sulfa (Sulfonamide Allergy Unknown Unknown Verified 03/25/22 16:57 Antibiotics) Home Medications Medication Instructions Recorded Confirmed Type cholecalciferol (vitamin D3) 50 2,000 units PO DAILY #30 caps 08/21/18 03/25/22 Rx mcg (2,000 unit) capsule pravastatin 20 mg tablet 20 mg PO DAILY #90 tabs 09/02/21 03/25/22 Rx cane #1 ea 10/29/21 12/15/21 Rx sertraline 25 mg tablet (Zoloft) 25 mg PO DAILY #30 tabs 11/01/21 03/25/22 Rx ascorbate calcium (vitamin C) 500 500 mg PO DAILY 12/28/21 03/25/22 History mg tablet diltiazem HCl 240 mg 240 mg PO DAILY #90 caps 01/12/22 03/25/22 Rx capsule,extended release 24 hr aspirin 81 mg tablet,delayed 81 mg PO DAILY #30 tabs 02/07/22 03/25/22 Rx release (Adult Low Dose Aspirin) carvedilol 12.5 mg tablet 12.5 mg PO BID #180 tabs 02/07/22 03/25/22 Rx hydrochlorothiazide 25 mg tablet 25 mg PO DAILY #90 tabs 02/07/22 03/25/22 Rx levothyroxine 88 mcg tablet 88 mcg PO DAILY #90 tabs 02/07/22 03/25/22 Rx (Levoxyl) lisinopril 40 mg tablet 40 mg PO DAILY #90 tabs 02/07/22 03/25/22 Rx magnesium oxide 500 mg PO DAILY #180 tabs 02/07/22 03/25/22 Rx omega-3 fatty acids 1,000 mg 1,000 mg PO DAILY 03/25/22 03/25/22 History capsule Patient History Medical History Abdominal pain, epigastric Abnormal mammography Atypical nevi Carpal tunnel syndrome Chronic reflux esophagitis Elevated blood sugar Elevated CK-MB level Encounter for routine gynecological examination Headache Hip pain Hypercholesterolemia Hypertension Hypertension, poor control Hypertensive emergency without congestive heart failure (12/11/13) Hypomagnesemia Hypothyroidism Impacted cerumen of right ear Influenza vaccine administered Lichen simplex chronicus Medicare annual wellness visit, subsequent Myalgia Nipple discharge PVCs (premature ventricular contractions) Recurrent UTI SNHL (sensorineural hearing loss) Subjective tinnitus Visit for screening mammogram Vulvovaginitis Surgical History History of appendectomy History of breast biopsy right History of cataract surgery bilateral History of colonoscopy History of dilation and curettage History of lumpectomy History of oophorectomy Family History Mother Stroke Coronary heart disease Congestive heart failure (CHF) Father Coronary heart disease Myocardial infarction Denies family history of Ovarian cancer Prostate cancer Breast cancer Colorectal cancer Social History Smoking Status: Never smoker Second Hand Exposure: Yes (Father smoked ); Hx Substance Use: No Preferred Language: Lebanese Communication Ability: Effective Visual Impairment: Limited Hearing Ability: Hard of Hearing Vat Operator Required: No Beliefs That Will Affect Care: None marital status: Current Living Situation: Spouse Current Living Situation Comment: Terence Chandra current occupational status: retired How many Children do You have: 1 Feels Safe at Home: Yes Childhood Exposure to Second-Hand Smoke: Yes (father smoked) Diet Comment: low sugar caffeine: No during the past year weight has: remained stable Dental Care, Regularly: Yes Physical Activity Frequency: 1-2 Times per Week Seatbelt Use: always Sunscreen Use: No Do you think of yourself as: straight/heterosexual Assistive Devices: Cane and Walker Physical Exam Physical Exam: Patient was sitting quietly and appeared to be in no distress. BP 190/78 mmHg. Pulse 70 bpm and regular. Skin: no ecchymoses or generalized lesions. HEENT: unremarkable. Neck: Jugular venous pulse at the clavicle at 90 degrees, no obvious carotid bruits. Lungs: clear bilaterally. Cardiac: regular rhythm, normal S1 and S2, no murmur. Abdomen: benign. Extremities: Legs show largely nonpitting edema, radial and dorsalis pedis pulses intact. Neurologic: normal affect, answer simple questions appropriately, grossly nonfocal. Results & Data ([facility]) Vital Signs (Past 12 Hours) Vital Signs Temp Pulse Pulse Resp BP Pulse Ox O2 Del Method 03/28/22 16:02 69 03/28/22 15:50 97.9 F 81 18 197/116 H 94 Room Air 03/28/22 11:00 98.6 F 74 18 176/92 H 93 Room Air 03/28/22 08:00 70 03/28/22 08:00 Room Air 03/28/22 07:31 98.4 F 79 18 191/95 H 92 Room Air Laboratory Results Normal electrolytes, BUN 31, creatinine 1.12. Negative high-sensitivity troponin. Diagnostic Findings ECG on admission showed sinus bradycardia at 48 bpm with occasional PVCs, LVH with repolarization abnormalities. A second ECG the following day showed sinus rhythm at 64 bpm and was largely unchanged. ECG yesterday showed sinus rhythm at 80 bpm, LVH with repolarization abnormality, no significant change. Echocardiogram this admission showed EF 65 to 70% with moderate LVH, mild pulmonary hypertension. Compared to 2020 study, right ventricular systolic pressure is mildly elevated. No evidence of dynamic outflow tract obstruction. PG Care Time/CCT Total # of Minutes Spent Total Time Spent with Patient: Total time spent is greater than 50% in coordination of care (as documented) at patient's floor/unit and/or counseling patient: Coding Level of Care Code INP/OBS CONSULT LVL 4, 60 MIN Diagnoses Bradycardia R00.1 Cerebral artery disease I67.9 Dynamic left ventricular outflow obstruction I51.89
[2022-03-29] MEDS: LEVOTHYROXINE SODIUM 88 MCG TABLET PO SCH (05:35)
--- NOTE | 2022-03-29 06:55 | Hospitalist Progress Note ---
Date of Service March 29, 2022 Assessment & Plan (1) Dizziness: (2) Bradycardia: (3) Memory loss: (4) Hypercholesterolemia: (5) Hypertension: (6) DVT prophylaxis: (7) Discharge planning issues: Plan Nini is a n 87 yo F w/ hx of situational depression, edema, PVCs, reflux esophagitis, hypercholesterolemia, hypothyroidism, SNHL, tinnitus, recurrent UTI, and HTN who presents for evaluation and management of dizziness. 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 Dizziness (resolved) - Likely multifactorial in nature - Considered 2/2 bradycardia vs stenosis of posterior circulation vs. 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 - Diltiazem was restarted on 03/28 at half of her normal dose. - No longer having dizziness, tele can be D/C at this time. - Continue telemetry, following for tachy/ghassan. Since admission patient reports less dizziness and had none on 03/28. Bradycardia with LVOT (resolved) - Symptomatic bradycardia evidenced on admission - Patient has remained sinus rhythm with rates of 60-80 since 03/27 while Coreg and Diltiazem were held. - 03/26 Echo EF 65-70%, moderate concentric LVH, mild MR, mild pHTN w/ RSVP 41 mmHg (elevated compared to 02/26/20) - Resumed cardizem at lower dose. HTN (resolved) - Patient home meds - Lisinopril 40 mg, HCTZ 25 mg, Diltiazem 240 mg, and Carvedilol 12.5 mg daily at home - Prefer to have BP lower in setting of vascular disease - Pt. may require permissive HTN if symptoms d/t stenosis of the posterior circulation as seen on head CTA. - Coreg and Diltiazem held d/t bradycardia -Cardio consulted for HTN management in setting of bradycardia and LVOT. -BP running high on 03/27 and previsouly. Resumed cardizem at lower dose of 120mgs. Would prefer amlodipine in this setting, though patient has an unknown allergy to this medication. Continue to hold Carvedilol. BP is now back at goal of under 160 sysytlic. -Can be D/C'ed and have patient f/u with cardiology as an outpatient. Will continue with 120mg once a day of diltilazem and may increase up to 125mg BID if needed in the future. D/C'ed carvedilol. Stenosis of Posterior Circulation - 03/25 Head CTA showing: Focal short segment area of high-grade stenosis within the left posterior cerebral artery. - 03/26 Brain MRI showing: No acute intracranial abnormality. No acute or subacute infarct. Involutional changes with chronic microvascular ischemic disease. - 03/26 Lipid Panel overall unremarkable (total cholesterol mildly elevated), A1c 6.7 (indicating diabetes, no current management) - PT/OT eval states SNF needed on D/C. Memory Loss - Chronic, progressive - At baseline. Hypokalemia - K 3.2, repleted with 40 mEq PO KCl on 03/27 Hypomagnesium -Mag was 1.6 on 03/28. -Mag repleted on 03/28. Hypophosphates -Phosphorus was 2.1 on 03/28. -Phosphorus repleted on 03/28 Diabetes - A1c 6.7, no current medical management Hypothyroidism - Home dose unknown to patient - Notes forgotten doses - Possible contributing factor - 03/26 TSH 2.1 - Continue home Levothyroxine 88 mcg B12 Deficiency - 03/26 B12 381 (pt. level < 400) - Continue to Supplement 1000 mcg daily Hypercholesterolemia - 03/26 Lipid Panel overall unremarkable (mildly elevated total cholesterol) - Continue home Pravastatin 20 mg Depression - Continue home Sertraline 25 mg PO FEN: Regular Code status: DNR/DNI DVT ppx: Lovenox Isolation: None Dispo:Med/surg, Can be D/C'ed from a medicine standpoint, pending placement. Thank you for allowing me to participate in the care of your patient. -Dr. Manjit Gamez PGY1 Admission and Anticipated Discharge Date Admission Date: March 25, 2022 Supervising Physician Co-Signing Physician Notes Resident Physician Supervision Note: I independently interviewed and examined the patient and verified the mcneill history and physical, reviewed labs and image studies and agree with resident findings and care plan. Subjective Patient is A&Ox3 and has no complaints at this time. She denies any SOB, CP, or N/V. Review of Systems Review of Systems: All systems reviewed & are unremarkable except as noted in HPI & below Physical Exam Physical Exam: Constitutional: well-appearing, no acute distress HEENT: NCAT, no conjunctival injection CV: regular rhythm, no murmur appreciated, extremities well-perfused, no LE edema Resp: CTABL, no wheezes/rales/rhonchi appreciated, no increased work of breathing GI: soft, nondistended, nontender, BS normoactive MSK: no gross deformities appreciated Skin: warm, dry, no rash appreciated Neuro: alert, oriented, no focal neurologic deficit appreciated Results & Data Results & Data ([facility]) Vital Signs (Past 12 Hours) Vital Signs Temp Pulse Pulse Resp BP BP Pulse Ox 03/28/22 22:22 64 03/29/22 02:32 36.4 C L 80 18 187/78 H 93 03/28/22 23:39 36.7 C 76 18 197/79 H 94 03/28/22 21:00 03/28/22 19:34 36.5 C 79 18 203/102 H 91 03/28/22 19:12 Pulse Ox O2 Del Method O2 Del Method 03/28/22 22:22 03/29/22 02:32 Room Air 03/28/22 23:39 Room Air 03/28/22 21:00 90 Room Air 03/28/22 19:34 Room Air 03/28/22 19:12 Room Air
[2022-03-29 07:20] LABS: Hematocrit (blood only) 44.3 % (34.1-44.9); Hemoglobin 15.4 g/dl (12.0-16.0); Mean Corpuscular Hemoglobin 31.3 pg (25.0-34.0); Mean Corpuscular Hgb Conc 34.8 g/dL (32.0-36.0); Mean Platelet Volume 10.3 fL (9.4-12.3); Platelet Count 287 K/uL (130-400); RDW Standard Deviation 42.3 fL (36.4-46.3); Red Blood Count 4.92 M/uL (3.93-5.22); White Blood Count 12.42 K/ul (4.8-10.8)
[2022-03-29] MEDS: dilTIAZem HCL 120 MG CAPCR PO SCH (07:44)
[2022-03-29] MEDS: ENOXAPARIN INJ 40 MG/0.4 ML SYR SQ SCH (07:44)
[2022-03-29] MEDS: POTASSIUM CHLORIDE CRTAB 20 MEQ TABCR PO SCH ×2 (07:44→20:37)
[2022-03-29] MEDS: hydroCHLOROthiazide 25 MG TAB PO SCH (07:45)
[2022-03-29] MEDS: CYANOCOBALAMIN (B-12) 500 MCG TABLET PO SCH (07:45)
[2022-03-29] MEDS: PRAVASTATIN SOD 20 MG TAB PO SCH (07:45)
[2022-03-29] MEDS: lisinopril 40 MG TAB PO SCH (07:45)
[2022-03-29] MEDS: CHOLECALCIFEROL 1,000 UNITS 25 MCG TAB PO SCH (07:46)
[2022-03-29] MEDS: SERTRALINE HCL 50 MG TABLET PO SCH (07:46)
[2022-03-29 07:47] LABS: BUN Creatinine Ratio 19.4 (10-20); Calcium 9.3 mg/dl (8.5-10.1); Est GFR (Non-African American) 49.2 ml/min; Potassium 3.9 mmol/L (3.5-5.1)
[2022-03-29] MEDS: ASPIRIN 81 MG ECTAB PO SCH (07:47)
[2022-03-29] MEDS: MAGNESIUM OXIDE 400 MG TAB PO SCH (07:47)
[2022-03-29] MEDS: ASCORBIC ACID 500 MG TAB PO SCH (07:47)
[2022-03-29] MEDS: OMEGA-3 (PURIFIED FISH OIL) 1 GM CAP PO SCH (07:47)
--- NOTE | 2022-03-29 14:09 | Cardiology Progress Note ---
Date of Service March 29, 2022 Assessment & Plan (1) Bradycardia: (2) Cerebral artery disease: (3) Dynamic left ventricular outflow obstruction: Plan Patient has improved symptomatically and has reasonable blood pressure control and appropriate heart rate. Would favor continuing diltiazem 120 mg daily, as an outpatient if she were to develop progressive hypertension or tachycardia could increase this to 240 mg daily but administer as divided doses (120 mg twice daily). Would not restart carvedilol given her recent bradycardia. Cardiology follow-up with Dr. Fofana. Admission and Anticipated Discharge Date Admission Date: March 25, 2022 Subjective Patient is doing well, she denied any dizziness or lightheadedness. She feels well currently. Telemetry showed sinus rhythm in the 60-70 bpm range. After an elevated BP at 7:30 PM last night (203/102 mmHg), subsequent BPs have been only mildly hypertensive and have been steadily improving. Physical Exam Physical Exam: Patient was sitting quietly and appeared to be in no distress. BP 158/66 mmHg. Pulse 68 bpm and regular. Skin: no ecchymoses or generalized lesions. HEENT: unremarkable. Neck: Jugular venous pulse at the clavicle at 90 degrees, no obvious carotid bruits. Lungs: clear bilaterally. Cardiac: regular rhythm, normal S1 and S2, no murmur. Abdomen: benign. Extremities: Legs show largely nonpitting edema, radial and dorsalis pedis pulses intact. Neurologic: normal affect, answer simple questions appropriately, grossly nonfocal. Results & Data ([facility]) Vital Signs (Past 12 Hours) Vital Signs Temp Pulse Pulse Resp BP BP Pulse Ox 03/29/22 12:00 97.7 F 92 H 18 158/66 H 97 03/29/22 10:46 83 03/29/22 07:50 97.5 F L 80 18 169/94 H 96 03/29/22 02:32 97.5 F L 80 18 187/78 H 93 O2 Del Method 03/29/22 12:00 Nasal Cannula 03/29/22 10:46 03/29/22 07:50 Room Air 03/29/22 02:32 Room Air Laboratory Results Normal electrolytes, BUN 20, creatinine 1.03. PG Care Time/CCT Total # of Minutes Spent Total Time Spent with Patient: Total time spent is greater than 50% in coordination of care (as documented) at patient's floor/unit and/or counseling patient: Coding Level of Care Code 21308 SUB INP/OBS CARE 235MIN Diagnoses Bradycardia R00.1 Cerebral artery disease I67.9 Dynamic left ventricular outflow obstruction I51.89
[2022-03-30] MEDS: LEVOTHYROXINE SODIUM 88 MCG TABLET PO SCH (06:24)
--- NOTE | 2022-03-30 06:46 | Discharge Summary ---
Date of Service March 30, 2022 Admission HPI Per Admitting Provider Patient is a very pleasant 87-year-old female accompanied by her family. History is a little bit limited by degree of forgetfulness and difficulty hearing, but putting it together between discussion with the ER doc, the patient, and her familyshe apparently was fairly dizzy when she tried to get up earlier todayfeeling like she was going to fall backwards. On directed questioning she notes there was both an unsteadiness and a lightheadedness (like a head escobar) and the seem to be concomitant but separate sensations. She has no focal numbness or weakness. No other acute symptoms. She does note a degree of forgetfulnesson discussion with her and son, it sounds like the forgetfulness has been slowly progressive over the last 6-12 months. Review of systems otherwise negative except for as above. Son notes that over the last months he has noticed his mom have a bit of a declinehis dad had a knee replacement about a month ago, and with his dad not being able to do as much care of his mom as before, as well as the fact that their routines have been offhe noticed a significant change in mom. Notes she is frequently forgetting medications as well. Admission Exam Per Admitting Provider In general she is awake alert oriented but somewhat forgetful no distress. HEENT normocephalic atraumatic mucous membranes moist. Cardio is fairly bradycardic and distant, no rubs murmurs or gallops are noted. Lungs are clear to auscultation bilaterally no rales rhonchi or wheezessomewhat difficult exam due to weakness and positioning. Abdomen is soft nondistended nontender no masses organomegaly. Extremities no cyanosis clubbing, about 2+ bilateral edema. Neuro shows cranial nerves II through XII be grossly intact gross motor is 5 out of 5 globally (of note she was weak on her left leg on first attempt, but second attempt was 5 out of 5 and equal to her right on all subsequent attempts.) Sensory is intact and equal bilaterally to confrontational light touch. Musculoskeletal shows no gross lesions. Mental status shows her to have fair to poor recent recall, normal mood and affect. Principal Diagnosis Dizziness Discharge Exam Constitutional: well-appearing, no acute distress HEENT: NCAT, no conjunctival injection CV: regular rhythm, no murmur appreciated, extremities well-perfused, no LE edema Resp: CTABL, no wheezes/rales/rhonchi appreciated, no increased work of breathing GI: soft, nondistended, nontender, BS normoactive MSK: no gross deformities appreciated Skin: warm, dry, no rash appreciated Neuro: alert, oriented, no focal neurologic deficit appreciated Discharge Data Allergies Allergy/AdvReac Type Severity Reaction Status Date / Time ciprofloxacin Allergy Intermediate EDEMA Verified 03/25/22 16:57 diltiazem Allergy Intermediate EDEMA Verified 03/25/22 16:57 gabapentin Allergy Intermediate SWELLING Verified 03/25/22 16:57 Penicillins Allergy Intermediate HIVES Verified 03/25/22 16:57 tramadol Allergy Mild Unknown Verified 03/25/22 16:57 amlodipine Allergy Unknown Unknown Verified 03/25/22 16:57 Sulfa (Sulfonamide Allergy Unknown Unknown Verified 03/25/22 16:57 Antibiotics) Consultations 03/25/22 16:39 ED Decision to Admit Stat 03/28/22 11:21 Consult Cardiology Routine Ordered Studies 03/25/22 12:29 CT head/brain wo con Stat 03/25/22 12:37 CT angio head w con Stat CT angio neck with con Stat 03/26/22 07:16 MR brain wo con Routine Hospital Course (1) Dizziness: (2) Bradycardia: (3) Memory loss: (4) Hypercholesterolemia: (5) Hypertension: (6) DVT prophylaxis: (7) Discharge planning issues: Jadyn Terrazas is a n 87 yo F w/ hx of situational depression, edema, PVCs, reflux esophagitis, hypercholesterolemia, hypothyroidism, SNHL, tinnitus, recurrent UTI, and HTN who presents for evaluation and management of dizziness. 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 Dizziness (resolved) - Likely multifactorial in nature - Considered 2/2 bradycardia vs stenosis of posterior circulation vs. 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 - Diltiazem was restarted on 03/28 at half of her normal dose. - No longer having dizziness, tele can be D/C at this time. - Continue telemetry, following for tachy/ghassan. Since admission patient reports less dizziness and had none on 1/9. Bradycardia with LVOT (resolved) - Symptomatic bradycardia evidenced on admission - Patient has remained sinus rhythm with rates of 60-80 since 03/27 while Coreg and Diltiazem were held. - 03/26 Echo EF 65-70%, moderate concentric LVH, mild MR, mild pHTN w/ RSVP 41 mmHg (elevated compared to 02/26/20) - Resumed cardizem at lower dose. HTN (resolved) - Patient home meds - Lisinopril 40 mg, HCTZ 25 mg, Diltiazem 240 mg, and Carvedilol 12.5 mg daily at home - Prefer to have BP lower in setting of vascular disease - Pt. may require permissive HTN if symptoms d/t stenosis of the posterior circulation as seen on head CTA. - Coreg and Diltiazem held d/t bradycardia -Cardio consulted for HTN management in setting of bradycardia and LVOT. -BP running high on 03/27 and previsouly. Resumed cardizem at lower dose of 120mgs. Would prefer amlodipine in this setting, though patient has an unknown allergy to this medication. Continue to hold Carvedilol. BP is now back at goal of under 160 sysytlic. -Can be D/C'ed and have patient f/u with cardiology as an outpatient. Will continue with 120mg once a day of diltilazem and may increase up to 125mg BID if needed in the future. D/C'ed carvedilol. Stenosis of Posterior Circulation - 03/25 Head CTA showing: Focal short segment area of high-grade stenosis within the left posterior cerebral artery. - 03/26 Brain MRI showing: No acute intracranial abnormality. No acute or subacute infarct. Involutional changes with chronic microvascular ischemic disease. - 03/26 Lipid Panel overall unremarkable (total cholesterol mildly elevated), A1c 6.7 (indicating diabetes, no current management) - PT/OT eval states SNF needed on D/C. Memory Loss - Chronic, progressive - At baseline. Hypokalemia - K 3.2, repleted with 40 mEq PO KCl on 03/27 Hypomagnesium -Mag was 1.6 on 03/28. -Mag repleted on 03/28. Hypophosphates -Phosphorus was 2.1 on 03/28. -Phosphorus repleted on 03/28 Diabetes - A1c 6.7, no current medical management Hypothyroidism - Home dose unknown to patient - Notes forgotten doses - Possible contributing factor - 03/26 TSH 2.1 - Continue home Levothyroxine 88 mcg B12 Deficiency - 03/26 B12 381 (pt. level < 400) - Continue to Supplement 1000 mcg daily Hypercholesterolemia - 03/26 Lipid Panel overall unremarkable (mildly elevated total cholesterol) - Continue home Pravastatin 20 mg Depression - Continue home Sertraline 25 mg PO FEN: Regular Code status: DNR/DNI DVT ppx: Lovenox Isolation: None Dispo:Med/surg, Can be D/C'ed from a medicine standpoint, pending placement. Thank you for allowing me to participate in the care of your patient. -Dr. Manjit Gamez PGY1 Total Time Total Time Spent Total Time Spent (In Minutes): 20 Discharge Plan Discharge Items Patient Disposition: Transfer [facility] Reason For Visit: DIZZINESS, POSTERIOR CIRCULATION STENOSIS Discharge Diagnosis: Dizziness Activity: Per Instructions section Non-emergency contact: Primary Care Provider Call non-emergency contact if: your symptoms worsen, your pain is concerning for you and your temperature is above 101.5 Follow-up/Referrals: Sourav Mac DO [Primary Care Provider] - Diet: Heart Healthy Addtl Attending Provider Instructions: You were admitted to the hospital for Dizziness. You were treated with fluids, antibiotics, and changes to your blood pressure medications. A discharge summary will be sent to your primary care physician to ensure continuity of care. Please bring this discharge summary with you to your next office appointment so that your provider can review it at that time. Follow-up appointments: * Make a follow-up appointment with your PCP within the next week. It is very important that you follow up with them shortly after discharge from the hospital. * You have a follow up appointment with Dr. Fofana that will be arranged by this office. * [You have an appointment with _ on _ at _. If you are unable to make this appointment, or have any other questions, their office can be reached at _.] * Keep all your follow-up appointments as already scheduled. If you cannot make an appointment, notify your provider. Medications: Your medication list has been reviewed and reconciled upon discharge to ensure accuracy and continuity of care. An updated list of all your medications is included with your hospital discharge paperwork. Please review this list closely, and make note of any changes. * We sent a new medication called [med name] to your pharmacy. Take [med name] ([dose]mg) [number of tablets] [frequency] [for _ days]. * We sent a new medication called [med name] to your pharmacy. Take [med name] ([dose]mg) [number of tablets] [frequency] [for _ days]. * We sent a new medication called [med name] to your pharmacy. Take [med name] ( [dose]mg) [number of tablets] [frequency] [for _ days]. * If you have any issues filling these prescriptions, please call [phone] and ask to leave a message for Dr. Gamez. * Take your medications as instructed; do not skip a dose of your medicines. Make sure all of your doctors know every medicine you are taking (including [id number] medicines, vitamins, and supplements). Call your primary care provider before taking any new medicines (including over- the-counter medicines, vitamins, and supplements), because some of these may interact with your current medications, or may make your symptoms worse. Tell your primary care provider if you cannot afford your medications. CONTACT YOUR PRIMARY CARE PROVIDER if you experience any of the following: * Worsening of symptoms * Fever, chills, or fatigue * Difficulty following your treatment plan, or difficulty taking medications CALL 911 OR GO TO THE EMERGENCY DEPARTMENT if you experience any of the following: * Sudden, severe abdominal pain or nausea/vomiting * Severe chest pain, or chest pain that radiates (moves) to your jaw or arm * Sudden, severe shortness of breath or difficulty breathing Thank you for allowing us to participate in your care. Stand-Alone Forms: My [facility] Medications and DC Order Prescriptions: No Action sertraline [Zoloft] 25 mg tablet 25 mg PO DAILY Qty: 30 2RF diltiazem HCl 240 mg capsule,extended release 24hr 240 mg PO DAILY Qty: 90 3RF ascorbate calcium (vitamin C) 500 mg tablet 500 mg PO DAILY levothyroxine [Levoxyl] 88 mcg tablet 88 mcg PO DAILY Qty: 90 3RF carvedilol 12.5 mg tablet 12.5 mg PO BID Qty: 180 3RF Rx Instructions: must administer with a meal/food lisinopril 40 mg tablet 40 mg PO DAILY Qty: 90 3RF magnesium oxide 250 mg magnesium tablet 500 mg PO DAILY Qty: 180 0RF hydrochlorothiazide 25 mg tablet 25 mg PO DAILY Qty: 90 3RF aspirin [Adult Low Dose Aspirin] 81 mg tablet,delayed release (DR/EC) 81 mg PO DAILY Qty: 30 2RF (DME) cane Device See Rx Instructions .Route Qty: 1 0RF Rx Instructions: As directed cholecalciferol (vitamin D3) 2,000 unit capsule 2,000 units PO DAILY Qty: 30 0RF pravastatin 20 mg tablet 20 mg PO DAILY Qty: 90 3RF omega-3 fatty acids 1,000 mg Capsule 1,000 mg PO DAILY Krames/Other Patient Handouts: A1C Admission Data Admit Date/Time: 03/25/22 18:19 Attending Provider: Genoveva Wills Admit Provider: Red Velarde Primary Care Provider: Sourav Mac Other Providers: Prateek Pratt ; Red Velarde ; Mike Almanzar
[2022-03-30] MEDS: lisinopril 40 MG TAB PO SCH (07:52)
[2022-03-30] MEDS: ASCORBIC ACID 500 MG TAB PO SCH (07:53)
[2022-03-30 08:05] LABS: Hemoglobin 15.2 g/dl (12.0-16.0); Mean Corpuscular Hemoglobin 30.9 pg (25.0-34.0); Mean Corpuscular Hgb Conc 34.5 g/dL (32.0-36.0); Mean Corpuscular Volume 89.4 fL (80.0-100.0); Mean Platelet Volume 10.2 fL (9.4-12.3); Platelet Count 290 K/uL (130-400); RDW Coefficient of Variation 13.3 % (11.5-14.5); RDW Standard Deviation 43.8 fL (36.4-46.3); Red Blood Count 4.92 M/uL (3.93-5.22); White Blood Count 10.57 K/ul (4.8-10.8)
[2022-03-30] MEDS: hydroCHLOROthiazide 25 MG TAB PO SCH (08:05)
[2022-03-30] MEDS: POTASSIUM CHLORIDE CRTAB 20 MEQ TABCR PO SCH ×2 (08:05→20:06)
[2022-03-30] MEDS: PRAVASTATIN SOD 20 MG TAB PO SCH (08:06)
[2022-03-30] MEDS: SERTRALINE HCL 50 MG TABLET PO SCH (08:06)
[2022-03-30] MEDS: MAGNESIUM OXIDE 400 MG TAB PO SCH (08:06)
[2022-03-30] MEDS: dilTIAZem HCL 120 MG CAPCR PO SCH ×2 (08:06→20:06)
[2022-03-30] MEDS: CYANOCOBALAMIN (B-12) 500 MCG TABLET PO SCH (08:07)
[2022-03-30] MEDS: CHOLECALCIFEROL 1,000 UNITS 25 MCG TAB PO SCH (08:07)
[2022-03-30] MEDS: OMEGA-3 (PURIFIED FISH OIL) 1 GM CAP PO SCH (08:07)
[2022-03-30] MEDS: ASPIRIN 81 MG ECTAB PO SCH (08:07)
[2022-03-30] MEDS: ENOXAPARIN INJ 40 MG/0.4 ML SYR SQ SCH (08:07)
[2022-03-30 08:29] LABS: BUN Creatinine Ratio 19.2 (10-20); Calcium 9.4 mg/dl (8.5-10.1); Creatinine Clr Calc Pharmacy 32.6 ml/min; Est GFR (African American) 47.4 ml/min; Est GFR (Non-African American) 40.9 ml/min; Potassium 4.3 mmol/L (3.5-5.1)
[2022-03-30 09:02] LABS: Appearance Urine Turbid (Clear); Bilirubin Urine Negative (Negative); Blood Urine 1+ (Negative); Color Urine Yellow; Epithelial Cell Urine Auto >30 /lpf (0-5); Glucose Urine UA Negative (Negative); Ketones Urine Negative (Negative); Leukocyte Esterase Urine 3+ (Negative); Nitrite Urine Positive (Negative); Protein Urine Trace (Negative); Specific Gravity Urine 1.015 (1.000-1.030); Urobilinogen Urine Negative (Negative); WBC Urine Automated >30 /hpf (0-5); pH Urine 6.5 (4.5-7.5)
[2022-03-30 09:29] LABS: Bacteria Urine Automated 4+ (Negative)
[2022-03-30 09:30] LABS: Cast Urine Automated 0 /lpf (0-5)
--- NOTE | 2022-03-30 10:40 | Cardiology Progress Note ---
Date of Service March 30, 2022 Assessment & Plan (1) Sinus bradycardia: (2) Dynamic left ventricular outflow obstruction: (3) Hypertension: Plan 1. Sinus bradycardia: Her low heart rate on presentation was probably a combination of beta-blockade and diltiazem, with discontinuation of carvedilol her heart rate has normalized. I would recommend continuing diltiazem without carvedilol. 2. Left ventricular outflow tract obstruction: Clinically this has not been an issue, this can be followed as an outpatient. 3. Hypertension: Her blood pressure is significantly elevated, primarily the systolic component although at times she does have diastolic hypertension as well. I would try to manage this without beta-blockade. Admission and Anticipated Discharge Date Admission Date: March 25, 2022 Subjective Chart reviewed including recent events. She presented with bradycardia which is probably due to a combination of carvedilol and diltiazem. She denies any cardiovascular symptoms today. Physical Exam Physical Exam: Constitutional: Alert, cooperative and in no distress. Pulmonary: Clear to auscultation bilaterally. Cardiac: Regular rhythm with no murmur, gallop or rub. Abdomen: Soft, nontender with normal bowel sounds. Extremities: No edema. Skin: No rash, ecchymoses or petechiae. Results & Data ([facility]) Vital Signs (Past 12 Hours) Vital Signs Temp Pulse Pulse Pulse Resp BP Pulse Ox 03/30/22 09:33 65 175/75 H 93 03/30/22 09:29 78 159/86 H 03/30/22 09:24 78 141/83 H 03/30/22 07:41 36.7 C 71 16 193/84 H 93 03/30/22 03:10 152/88 H 03/29/22 23:04 36.8 C 70 16 205/78 H 94 O2 Del Method 03/30/22 09:33 Room Air 03/30/22 09:29 03/30/22 09:24 03/30/22 07:41 Room Air 03/30/22 03:10 03/29/22 23:04 Room Air Laboratory Results CBC 03/30/22 Range/Units 07:26 WBC 10.57 (4.8-10.8) K/ul RBC 4.92 (3.93-5.22) M/uL Hgb 15.2 (12.0-16.0) g/dl Hct 44.0 (34.1-44.9) % Plt Count 290 (130-400) K/uL Comprehensive Metabolic Panel 03/30/22 Range/Units 07:26 Sodium 136 (136-145) mmol/L Potassium 4.3 (3.5-5.1) mmol/L Chloride 102 (98-107) mmol/L Carbon Dioxide 27 (21-32) mmol/L BUN 23 (6-23) mg/dl Creatinine 1.20 (0.6-1.2) mg/dl Glucose 119 H (70-99(Fasting)) mg/dl Calcium 9.4 (8.5-10.1) mg/dl Intake and Output 03/29/22 03/30/22 03/30/22 22:59 06:59 14:59 Intake Total 300 / 300 Output Total 400 / 400 Balance -100 / -100 Intake: Oral 300 / 300 Output: Urine 400 / 400 Other: # Unmeasured Voids 1 Weight 81.5 kg Weight Measurement Method Built in [facility] Care Time/CCT Total # of Minutes Spent Total Time Spent with Patient: Total time spent is greater than 50% in coordination of care (as documented) at patient's floor/unit and/or counseling patient: Coding Level of Care Code 55093 SUB INP/OBS CARE 2/35MIN Diagnoses Sinus bradycardia R00.1 Dynamic left ventricular outflow obstruction I51.89 Hypertension I10
[2022-03-30] MEDS: NITROFURANTOIN MONOHYDRATE 100 MG CAP PO SCH ×2 (11:35→20:06)
--- NOTE | 2022-03-30 18:53 | Hospitalist Progress Note ---
Date of Service March 30, 2022 Assessment & Plan (1) Dizziness: (2) Bradycardia: (3) Memory loss: (4) Hypercholesterolemia: (5) Hypertension: (6) DVT prophylaxis: (7) Discharge planning issues: (8) UTI (urinary tract infection): Plan Nini is a n 87 yo F w/ hx of situational depression, edema, PVCs, reflux esophagitis, hypercholesterolemia, hypothyroidism, SNHL, tinnitus, recurrent UTI, and HTN who presents for evaluation and management of dizziness. 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 Dizziness (resolved) - Likely multifactorial in nature - Considered 2/2 bradycardia vs stenosis of posterior circulation vs. 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 - Diltiazem was restarted on 03/28 at half of her normal dose. Then increased to 120 BID on 03/30 due to persistent elevated BP. - No longer having dizziness, tele can be D/C at this time. - Continue telemetry, following for tachy/ghassan. Since admission patient repor ts less dizziness and had none on 03/28. Bradycardia with LVOT (resolved) - Symptomatic bradycardia evidenced on admission - Patient has remained sinus rhythm with rates of 60-80 since 03/27 while Coreg and Diltiazem were held. - 03/26 Echo EF 65-70%, moderate concentric LVH, mild MR, mild pHTN w/ RSVP 41 mmHg (elevated compared to 02/26/20) - Resumed cardizem at lower dose. HTN - Patient home meds - Lisinopril 40 mg, HCTZ 25 mg, Diltiazem 240 mg, and Carvedilol 12.5 mg daily at home - Prefer to have BP lower in setting of vascular disease - Pt. may require permissive HTN if symptoms d/t stenosis of the posterior circulation as seen on head CTA. - Coreg and Diltiazem held d/t bradycardia on admission -Cardio consulted for HTN management in setting of bradycardia and LVOT. -BP running high on 03/27 and previously. Resumed cardizem at lower dose of 120mgs. Would prefer amlodipine in this setting, though patient has an unknown allergy to this medication. Continue to hold Carvedilol. BP is now back at goal of under 160 systolic - BP remains to be high, increased Diltiazem to 120 mg BID on 03/30. Will monitor how BP and HR does after second dose. - D/C'ed carvedilol. UTI -Patient c/o urinary symptoms on 03/30. -UA grossly positive for UTI -urine cultures pending, past UTI's have been pansensitive. -Start macrolide 100mg BID for 5 days. Stenosis of Posterior Circulation - 03/25 Head CTA showing: Focal short segment area of high-grade stenosis within the left posterior cerebral artery. - 03/26 Brain MRI showing: No acute intracranial abnormality. No acute or subacute infarct. Involutional changes with chronic microvascular ischemic disease. - 03/26 Lipid Panel overall unremarkable (total cholesterol mildly elevated), A1c 6.7 (indicating diabetes, no current management) - PT/OT eval states SNF needed on D/C. Memory Loss - Chronic, progressive - At baseline. Hypokalemia - K 3.2, repleted with 40 mEq PO KCl on 03/27 Hypomagnesium -Mag was 1.6 on 03/28. -Mag repleted on 03/28. Hypophosphates -Phosphorus was 2.1 on 03/28. -Phosphorus repleted on 03/28 Diabetes - A1c 6.7, no current medical management Hypothyroidism - Home dose unknown to patient - Notes forgotten doses - Possible contributing factor - 03/26 TSH 2.1 - Continue home Levothyroxine 88 mcg B12 Deficiency - 03/26 B12 381 (pt. level < 400) - Continue to Supplement 1000 mcg daily Hypercholesterolemia - 03/26 Lipid Panel overall unremarkable (mildly elevated total cholesterol) - Continue home Pravastatin 20 mg Depression - Continue home Sertraline 25 mg PO FEN: Regular Code status: DNR/DNI DVT ppx: Lovenox Isolation: None Dispo:Med/surg, Thank you for allowing me to participate in the care of your patient. -Dr. Manjit Gamez PGY1 Admission and Anticipated Discharge Date Admission Date: March 25, 2022 Supervising Physician Co-Signing Physician Notes Resident Physician Supervision Note: I independently interviewed and examined the patient and verified the mcneill his tory and physical, reviewed labs and image studies and agree with resident findings and care plan. Subjective Patient was seen beside today. She is c/o urinary urgency, frequency, and suprapubic tenderness. She states that she feels like she has a "UTI". She has no other complaints or concerns at this time. Review of Systems Review of Systems: All systems reviewed & are unremarkable except as noted in HPI & below Physical Exam Physical Exam: Constitutional: well-appearing, no acute distress HEENT: NCAT, no conjunctival injection CV: regular rhythm, no murmur appreciated, extremities well-perfused, no LE edema Resp: CTABL, no wheezes/rales/rhonchi appreciated, no increased work of breathing GI: soft, nondistended, suprapubic tenderness, BS normoactive MSK: no gross deformities appreciated Skin: warm, dry, no rash appreciated Neuro: alert, oriented, no focal neurologic deficit appreciated Results & Data Results & Data ([facility]) Vital Signs (Past 12 Hours) Vital Signs Temp Pulse Pulse Pulse Resp BP Pulse Ox 03/30/22 15:16 37.1 C 65 16 154/77 H 94 03/30/22 09:33 65 175/75 H 93 03/30/22 09:29 78 159/86 H 03/30/22 09:24 78 141/83 H 03/30/22 07:41 36.7 C 71 16 193/84 H 93 O2 Del Method 03/30/22 15:16 Room Air 03/30/22 09:33 Room Air 03/30/22 09:29 03/30/22 09:24 03/30/22 07:41 Room Air Resident Activity Tracking Resident Involvement: Resident Care Provided Care Provided: Adult Hospital Medicine
[2022-03-31] MEDS: LEVOTHYROXINE SODIUM 88 MCG TABLET PO SCH (05:47)
--- NOTE | 2022-03-31 06:54 | Discharge Summary ---
Date of Service March 31, 2022 Admission HPI Per Admitting Provider Patient is a very pleasant 87-year-old female accompanied by her family. History is a little bit limited by degree of forgetfulness and difficulty hearing, but putting it together between discussion with the ER doc, the patient, and her familyshe apparently was fairly dizzy when she tried to get up earlier todayfeeling like she was going to fall backwards. On directed questioning she notes there was both an unsteadiness and a lightheadedness (like a head escobar) and the seem to be concomitant but separate sensations. She has no focal numbness or weakness. No other acute symptoms. She does note a degree of forgetfulnesson discussion with her and son, it sounds like the forgetfulness has been slowly progressive over the last 6-12 months. Review of systems otherwise negative except for as above. Son notes that over the last months he has noticed his mom have a bit of a declinehis dad had a knee replacement about a month ago, and with his dad not being able to do as much care of his mom as before, as well as the fact that their routines have been offhe noticed a significant change in mom. Notes she is frequently forgetting medications as well. Admission Exam Per Admitting Provider In general she is awake alert oriented but somewhat forgetful no distress. HEENT normocephalic atraumatic mucous membranes moist. Cardio is fairly bradycardic and distant, no rubs murmurs or gallops are noted. Lungs are clear to auscultation bilaterally no rales rhonchi or wheezessomewhat difficult exam due to weakness and positioning. Abdomen is soft nondistended nontender no masses organomegaly. Extremities no cyanosis clubbing, about 2+ bilateral edema. Neuro shows cranial nerves II through XII be grossly intact gross motor is 5 out of 5 globally (of note she was weak on her left leg on first attempt, but second attempt was 5 out of 5 and equal to her right on all subsequent attempts.) Sensory is intact and equal bilaterally to confrontational light touch. Musculoskeletal shows no gross lesions. Mental status shows her to have fair to poor recent recall, normal mood and affect. Principal Diagnosis Sinus Bradycardia/ Dizziness Discharge Exam Constitutional: well-appearing, no acute distress HEENT: NCAT, no conjunctival injection CV: regular rhythm, no murmur appreciated, extremities well-perfused, no LE edema Resp: CTABL, no wheezes/rales/rhonchi appreciated, no increased work of breathing GI: soft, nondistended, suprapubic tenderness, BS normoactive MSK: no gross deformities appreciated Skin: warm, dry, no rash appreciated Neuro: alert, oriented, no focal neurologic deficit appreciated Discharge Data Allergies Allergy/AdvReac Type Severity Reaction Status Date / Time ciprofloxacin Allergy Intermediate EDEMA Verified 03/25/22 16:57 diltiazem Allergy Intermediate EDEMA Verified 03/25/22 16:57 gabapentin Allergy Intermediate SWELLING Verified 03/25/22 16:57 Penicillins Allergy Intermediate HIVES Verified 03/25/22 16:57 tramadol Allergy Mild Unknown Verified 03/25/22 16:57 amlodipine Allergy Unknown Unknown Verified 03/25/22 16:57 Sulfa (Sulfonamide Allergy Unknown Unknown Verified 03/25/22 16:57 Antibiotics) Consultations 03/25/22 16:39 ED Decision to Admit Stat 03/28/22 11:21 Consult Cardiology Routine Ordered Studies 03/25/22 12:29 CT head/brain wo con Stat 03/25/22 12:37 CT angio head w con Stat CT angio neck with con Stat 03/26/22 07:16 MR brain wo con Routine Hospital Course (1) Dizziness: (2) Bradycardia: (3) Memory loss: (4) Hypercholesterolemia: (5) Hypertension: (6) DVT prophylaxis: (7) Discharge planning issues: (8) UTI (urinary tract infection): Plan Nini is a n 87 yo F w/ hx of situational depression, edema, PVCs, reflux esophagitis, hypercholesterolemia, hypothyroidism, SNHL, tinnitus, recurrent UTI, and HTN who presents for evaluation and management of dizziness. 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 Dizziness (resolved) - Likely multifactorial in nature - Considered 2/2 bradycardia vs stenosis of posterior circulation vs. 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 - Diltiazem was restarted on 03/28 at half of her normal dose. Then increased to 120 BID on 03/30 due to persistent elevated BP. - No longer having dizziness, and VSS at time of discharge. 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 Bradycardia with LVOT (resolved) - Symptomatic bradycardia evidenced on admission - Patient has remained sinus rhythm with rates of 60-80 since 03/27 while Coreg and Diltiazem were held. - 03/26 Echo EF 65-70%, moderate concentric LVH, mild MR, mild pHTN w/ RSVP 41 mmHg (elevated compared to 02/26/20) HTN - Patient home meds - Lisinopril 40 mg, HCTZ 25 mg, Diltiazem 240 mg, and Carvedilol 12.5 mg daily at home - Prefer to have BP lower in setting of vascular disease - Pt. may require permissive HTN if symptoms d/t stenosis of the posterior circulation as seen on head CTA. - Coreg and Diltiazem held d/t bradycardia on admission -Cardio consulted for HTN management in setting of bradycardia and LVOT. -BP running high on 03/27 and previously. Resumed cardizem at lower dose of 120mgs. Would prefer amlodipine in this setting, though patient has an unknown allergy to this medication. Continue to hold Carvedilol. BP is now back at goal of under 160 systolic - BP remained high - increased Diltiazem to 120 mg BID on 03/30. - D/C'ed carvedilol. UTI -Patient c/o urinary symptoms on 03/30. -UA grossly positive for UTI -urine cultures pending, past UTI's have been pansensitive. -Macrobid 100mg BID for 5 days started on 03/30. Stenosis of Posterior Circulation - 03/25 Head CTA showing: Focal short segment area of high-grade stenosis within the left posterior cerebral artery. - 03/26 Brain MRI showing: No acute intracranial abnormality. No acute or subacute infarct. Involutional changes with chronic microvascular ischemic disease. - 03/26 Lipid Panel overall unremarkable (total cholesterol mildly elevated), A1c 6.7 (indicating diabetes, no current management) - PT/OT eval states SNF needed on D/C. Memory Loss - Chronic, progressive - At baseline. Electrolyte imbalance -repleted Diabetes - A1c 6.7, no current medical management Hypothyroidism - 03/26 TSH 2.1 - Continue home Levothyroxine 88 mcg B12 Deficiency - 03/26 B12 381 (pt. level < 400) - Continue to Supplement 1000 mcg daily Hypercholesterolemia - 03/26 Lipid Panel overall unremarkable (mildly elevated total cholesterol) - Continue home Pravastatin 20 mg Depression - Continue home Sertraline 25 mg PO Total Time Total Time Spent Total Time Spent (In Minutes): 20 Discharge Plan Discharge Items Patient Disposition: Transfer Detention Fac Reason For Visit: DIZZINESS, POSTERIOR CIRCULATION STENOSIS Discharge Diagnosis: Dizziness Activity: Resume your previous activity Non-emergency contact: Primary Care Provider Call non-emergency contact if: your symptoms worsen, your pain is concerning for you and your temperature is above 101.5 Follow-up/Referrals: Sourav Mac DO [Primary Care Provider] - Diet: Heart Healthy Addtl Attending Provider Instructions: You were admitted to the hospital for Dizziness. You were treated with fluids, antibiotics, and changes to your blood pressure medications. A discharge summary will be sent to your primary care physician to ensure continuity of care. Please bring this discharge summary with you to your next office appointment so that your provider can review it at that time. Follow-up appointments: * Make a follow-up appointment with your PCP within the next week. It is very important that you follow up with them shortly after discharge from the hospital. * You have a follow up appointment with Dr. Fofana that will be arranged by his office. * Keep all your follow-up appointments as already scheduled. If you cannot make an appointment, notify your provider. Medications: Your medication list has been reviewed and reconciled upon discharge to ensure accuracy and continuity of care. An updated list of all your medications is included with your hospital discharge paperwork. Please review this list closely, and make note of any changes. * We sent a new medication called Macrobid to your pharmacy. Take Macrobid (100mg) 1 tab twice a day for 4 more days. * We changed the dose of your Diltiazem which was sent to your pharmacy. Take Diltiazem (120mg) 1 tab twice a day. * Stop your Carvedilol. * If you have any issues filling these prescriptions, please call [phone] and ask to leave a message for Dr. Gamez. * Take your medications as instructed; do not skip a dose of your medicines. Make sure all of your doctors know every medicine you are taking (including [id number] medicines, vitamins, and supplements). Call your primary care provider before taking any new medicines (including over- the-counter medicines, vitamins, and supplements), because some of these may interact with your current medications, or may make your symptoms worse. Tell your primary care provider if you cannot afford your medications. CONTACT YOUR PRIMARY CARE PROVIDER if you experience any of the following: * Worsening of symptoms * Fever, chills, or fatigue * Difficulty following your treatment plan, or difficulty taking medications CALL 911 OR GO TO THE EMERGENCY DEPARTMENT if you experience any of the following: * Sudden, severe abdominal pain or nausea/vomiting * Severe chest pain, or chest pain that radiates (moves) to your jaw or arm * Sudden, severe shortness of breath or difficulty breathing Thank you for allowing us to participate in your care. Pending Studies at Discharge: No Stand-Alone Forms: My [facility] Skilled Items Patient informed of condition?: Yes DNR: Yes Discharge Level of Care: Skilled Communicable Disease: No Discharge Prognosis: Improving Lines: None Urinary Catheter: No Medications and DC Order Prescriptions: New diltiazem HCl [Cardizem CD] 120 mg Capsule,Extended Release 24hr 120 mg PO BID Qty: 60 0RF nitrofurantoin monohyd/m-cryst 100 mg Capsule 100 mg PO BID 4 Days Qty: 8 0RF Continued sertraline [Zoloft] 25 mg tablet 25 mg PO DAILY Qty: 30 2RF ascorbate calcium (vitamin C) 500 mg tablet 500 mg PO DAILY levothyroxine [Levoxyl] 88 mcg tablet 88 mcg PO DAILY Qty: 90 3RF lisinopril 40 mg tablet 40 mg PO DAILY Qty: 90 3RF magnesium oxide 250 mg magnesium tablet 500 mg PO DAILY Qty: 180 0RF hydrochlorothiazide 25 mg tablet 25 mg PO DAILY Qty: 90 3RF aspirin [Adult Low Dose Aspirin] 81 mg tablet,delayed release (DR/EC) 81 mg PO DAILY Qty: 30 2RF (DME) cane Device See Rx Instructions .Route Qty: 1 0RF Rx Instructions: As directed cholecalciferol (vitamin D3) 2,000 unit capsule 2,000 units PO DAILY Qty: 30 0RF pravastatin 20 mg tablet 20 mg PO DAILY Qty: 90 3RF omega-3 fatty acids 1,000 mg Capsule 1,000 mg PO DAILY Discontinued diltiazem HCl 240 mg capsule,extended release 24hr 240 mg PO DAILY Qty: 90 3RF carvedilol 12.5 mg tablet 12.5 mg PO BID Qty: 180 3RF Rx Instructions: must administer with a meal/food Discharge Orders: Discharge Order (Routine); Ordered 03/31/22 Ordered By: Manjit Farr/Other Patient Handouts: A1C Admission Data Admit Date/Time: 03/25/22 18:19 Attending Provider: Genoveva Wills Admit Provider: Red Velarde Primary Care Provider: Sourav Mac Other Providers: Prateek Pratt ; Red Velarde ; Mike Almanzar Other Interventions: Discharge Summary Assessment (RN) Last Done: 03/31/22 15:14 Supervising Physician Co-Signing Physician Notes Resident Physician Supervision Note: I independently interviewed and examined the patient and verified the mcneill history and physical, reviewed labs and image studies and agree with resident findings and care plan. Resident Activity Tracking Resident Involvement: Resident Care Provided Care Provided: Adult Hospital Medicine
[2022-03-31 07:36] LABS: Hematocrit (blood only) 46.5 % (34.1-44.9); Mean Corpuscular Hemoglobin 31.1 pg (25.0-34.0); Mean Corpuscular Hgb Conc 34.4 g/dL (32.0-36.0); Mean Corpuscular Volume 90.5 fL (80.0-100.0); Mean Platelet Volume 10.1 fL (9.4-12.3); Platelet Count 282 K/uL (130-400); RDW Coefficient of Variation 13.2 % (11.5-14.5); RDW Standard Deviation 43.5 fL (36.4-46.3); Red Blood Count 5.14 M/uL (3.93-5.22); White Blood Count 9.89 K/ul (4.8-10.8)
[2022-03-31] MEDS: ENOXAPARIN INJ 40 MG/0.4 ML SYR SQ SCH (08:37)
[2022-03-31] MEDS: ASCORBIC ACID 500 MG TAB PO SCH (08:37)
[2022-03-31] MEDS: NITROFURANTOIN MONOHYDRATE 100 MG CAP PO SCH (08:37)
[2022-03-31] MEDS: hydroCHLOROthiazide 25 MG TAB PO SCH (08:37)
[2022-03-31] MEDS: CHOLECALCIFEROL 1,000 UNITS 25 MCG TAB PO SCH (08:37)
[2022-03-31] MEDS: OMEGA-3 (PURIFIED FISH OIL) 1 GM CAP PO SCH (08:37)
[2022-03-31] MEDS: CYANOCOBALAMIN (B-12) 500 MCG TABLET PO SCH (08:37)
[2022-03-31] MEDS: PRAVASTATIN SOD 20 MG TAB PO SCH (08:37)
[2022-03-31] MEDS: dilTIAZem HCL 120 MG CAPCR PO SCH (08:37)
[2022-03-31] MEDS: ASPIRIN 81 MG ECTAB PO SCH (08:38)
[2022-03-31] MEDS: lisinopril 40 MG TAB PO SCH (08:38)
[2022-03-31] MEDS: MAGNESIUM OXIDE 400 MG TAB PO SCH (08:38)
[2022-03-31] MEDS: SERTRALINE HCL 50 MG TABLET PO SCH (08:38)
[2022-03-31] MEDS: POTASSIUM CHLORIDE CRTAB 20 MEQ TABCR PO SCH (08:41)
[2022-03-31 08:54] LABS: BUN Creatinine Ratio 20.8 (10-20); Calcium 9.6 mg/dl (8.5-10.1); Creatinine Clr Calc Pharmacy 32.3 ml/min; Est GFR (African American) 47.4 ml/min; Est GFR (Non-African American) 40.9 ml/min; Potassium 4.4 mmol/L (3.5-5.1)
--- NOTE | 2022-03-31 11:44 | Cardiology Progress Note ---
Date of Service March 31, 2022 Assessment & Plan (1) Sinus bradycardia: Plan: Resolved off combination beta-jessika/calcium channel jessika therapy. Continue diltiazem 240 mg daily (her usual dose) while monitoring heart rate. Do not restart beta-jessika. (2) Dynamic left ventricular outflow obstruction: Plan: Not a current clinical issue. (3) Hypertension: Plan: BP reasonable but still elevated. Although generally alpha blockers are avoided at this age, she did tolerate carvedilol which has an alpha blocking component. Could consider doxazosin or other alpha-jessika at low dose if BP remains elevated. Cardiology follow-up with Dr. Fofana on a routine basis. Admission and Anticipated Discharge Date Admission Date: March 25, 2022 Subjective Patient has no complaints. Denies chest pain, dyspnea, palpitations, or dizziness. Physical Exam Physical Exam: Patient was sitting quietly and appeared to be in no distress. BP 154/92 mmHg. Pulse 83 pm and regular. Skin: no ecchymoses or generalized lesions. HEENT: unremarkable. Neck: Jugular venous pulse at the clavicle at 90 degrees, no obvious carotid bruits. Lungs: clear bilaterally. Cardiac: regular rhythm, normal S1 and S2, no murmur. Abdomen: benign. Extremities: Legs show largely nonpitting edema, radial and dorsalis pedis puls es intact. Neurologic: normal affect, grossly nonfocal. Results & Data ([facility]) Vital Signs (Past 12 Hours) Vital Signs Temp Pulse Resp BP BP Pulse Ox O2 Del Method 03/31/22 11:33 154/92 H 03/31/22 08:31 98.8 F 83 18 176/95 H 95 Room Air Laboratory Results Normal electrolytes, BUN 25, creatinine 1.2. PG Care Time/CCT Total # of Minutes Spent Total Time Spent with Patient: Total time spent is greater than 50% in coordination of care (as documented) at patient's floor/unit and/or counseling patient: Coding Level of Care Code 46187 SUB INP/OBS CARE 2/35MIN Diagnoses Sinus bradycardia R00.1 Dynamic left ventricular outflow obstruction I51.89 Hypertension I10
== END 2022-03-31 15:52 ==
LOC: ED 11:54 → INTOOBSV 18:19 → EDINP 18:19 → SUATTDRO 18:19 → 2S 21:03 → 3N 03-29 21:48